=== PATIENT | male | born 1935 | race Caucasian/White ===

== ENCOUNTER 2017-06-24 21:46 | Inpatient (IN) | payer MEDICARE, BC ==
[2017-06-24] MEDS ORDERED: SODIUM CHLORIDE 0.9% 1,000 ML IV STA ×2 (21:56)
[2017-06-24] MEDS ORDERED: RX INFO: IV CONTRAST WAS GIVEN 1 EACH MISC MISCELLANE PRN (21:56)
[2017-06-24 22:08] LABS: Basophils % (A) 0 %; CHCM 31.9; Eosinophils # (A) 0.1 k/uL (0-0.7); Eosinophils % (A) 2 %; HCT 34.7 % (39.0-53.0); HDW 2.44; HGB 11.2 gm/dL (13.0-17.5); Luc # (Auto) 0.12; Luc % (Auto) 2; Lymphocytes # (A) 1.4 k/uL (1.0-4.8); Lymphocytes % (A) 27 %; MCH 29.5 pg (25.0-35.0); MCHC 32.2 g/dL (31.0-37.0); MCV 91.4 fL (80.0-100.0); Mean Platelet Volume 10.3; Monocytes # (A) 0.4 k/uL (0-1.0); Monocytes % (A) 8 %; Neutrophils # (A) 3.1 k/uL (1.3-7.7); Neutrophils % (A) 61 %; RBC 3.79 m/uL (4.30-5.90); RDW 14.3 % (11.5-15.5); WBC 5.1 k/uL (3.8-10.6); WBC (Perox) 5.58
[2017-06-24 22:18] LABS: ALT 30 U/L (21-72); AST 20 U/L (17-59); Alkaline Phosphatase 61 U/L (38-126); Anion Gap 12 mmol/L; Blood Urea Nitrogen 23 mg/dL (9-20); Calcium 9.5 mg/dL (8.4-10.2); Carbon Dioxide 26 mmol/L (22-30); Chloride 102 mmol/L (98-107); Glucose 145 mg/dL (74-99); INR 1.1 (<1.2); Non-African American GFR(MDRD) >60 (>60 ml/min/1.73 sqM); Partial Thromboplastin Time 22.4 sec (22.0-30.0); Potassium 4.8 mmol/L (3.5-5.1); Sodium 140 mmol/L (137-145); Total Bilirubin 0.4 mg/dL (0.2-1.3); Total Protein 7.2 g/dL (6.3-8.2)
--- NOTE | 2017-06-24 22:27 | CT ---
EXAMINATION TYPE: CT brain wo con for TPA DATE OF EXAM: 06/24/2017 COMPARISON: July 17, 2015 HISTORY: Change in mental status. CT DLP: 1039.50 mGycm Automated exposure control for dose reduction was used. FINDINGS: There is a large area of hypodensity involving the left temporal posterior parietal and part of the l eft occipital lobe related to old infarct. There is no mass effect nor midline shift. There is no sig n of intracranial hemorrhage. The calvarium is intact. 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 THE LEFT OCCIPITAL AND PARIETAL INFARCT IS UNCHANGED COMPARED TO 1 15. THE OLD LEFT TEMPORAL LOBE INFARCT IS NEW COMPARED TO OLD EXAM. NO EVIDENCE OF AN ACUTE INFARCT .
--- NOTE | 2017-06-24 22:39 | XR ---
EXAMINATION TYPE: XR chest 1V portable DATE OF EXAM: 06/24/2017 COMPARISON: 02/06/2013 HISTORY: Altered mental status TECHNIQUE: Single frontal view of the chest is obtained. FINDINGS: There is no heart failure nor confluent pneumonic infiltrate. There is left axillary pacem carmine with the lead tips in the right ventricle. There is no sign of pleural effusion. IMPRESSION: Mild pulmonary fibrotic changes. No heart failure. No significant change compared to old exam.
[2017-06-24 22:42] LABS: Creatine Kinase MB 3.5 ng/mL (0.0-2.4); Troponin I 0.039 ng/mL (0.000-0.034)
--- NOTE | 2017-06-24 22:45 | ED ---
General Adult HPI - General Chief complaint: Altered Mental Status Stated complaint: Neuro Defecit Time Seen by Provider: 06/24/17 21:47 Source: EMS, RN notes reviewed, old records reviewed Mode of arrival: EMS Limitations: altered mental status - History of Present Illness Initial comments: This is a 82-year-old male the ER for evaluation. Patient is a for evaluation regarding possible stroke. Patient is brought in by with history of stroke prevention regarding slurred speech and weakness. Patient himself at this point states the symptoms seem to be improved. states his symptoms seem to be improved. Patient denies any specific complaints, denies chest pain - Related Data Home Medications Medication Instructions Recorded Confirmed Lovastatin [Mevacor] 20 mg PO HS 07/17/15 06/25/17 metFORMIN HCL 1,000 mg PO BID 07/17/15 06/25/17 Aspirin 81 mg PO DAILY 06/24/17 06/25/17 Multivitamin [Men's Multi-Vitamin] 1 tab PO DAILY 06/25/17 06/25/17 Allergies Allergy/AdvReac Type Severity Reaction Status Date / Time Penicillins Allergy Unknown Verified 06/24/17 22:34 Review of Systems ROS Statement: Those systems with pertinent positive or pertinent negative responses have been documented in the HPI. ROS Other: All systems not noted in ROS Statement are negative. Past Medical History Past Medical History: Diabetes Mellitus, Hyperlipidemia Additional Past Medical History / Comment(s): low heart rate History of Any Multi-Drug Resistant Organisms: None Reported Past Surgical History: Pacemaker, Tonsillectomy Additional Past Surgical History / Comment(s): left leg surgery, right leg surgery, cataract surgery Past Psychological History: No Psychological Hx Reported Smoking Status: Never smoker Past Alcohol Use History: None Reported Past Drug Use History: None Reported - Past Family History Brother(s) Family Medical History: CVA/TIA Mother Family Medical History: Coronary Artery Disease (CAD), CVA/TIA Father Family Medical History: CVA/TIA General Exam - General Exam Comments Initial Comments: NIH of 1 Limitations: altered mental status General appearance: alert, in no apparent distress Head exam: Present: atraumatic, normocephalic, normal inspection Eye exam: Present: normal appearance, PERRL, EOMI. Absent: scleral icterus, conjunctival injection, periorbital swelling ENT exam: Present: normal exam, mucous membranes moist Neck exam: Present: normal inspection. Absent: tenderness, meningismus, lymphadenopathy Respiratory exam: Present: normal lung sounds bilaterally. Absent: respiratory distress, wheezes, rales, rhonchi, stridor Cardiovascular Exam: Present: regular rate, normal rhythm, normal heart sounds. Absent: systolic murmur, diastolic murmur, rubs, gallop, clicks GI/Abdominal exam: Present: soft, normal bowel sounds. Absent: distended, tenderness, guarding, rebound, rigid Extremities exam: Present: normal inspection, full ROM, normal capillary refill. Absent: tenderness, pedal edema, joint swelling, calf tenderness Back exam: Present: normal inspection Neurological exam: Present: alert, oriented X3, CN II-XII intact Psychiatric exam: Present: normal affect, normal mood Skin exam: Present: warm, dry, intact, normal color. Absent: rash Course Vital Signs 06/24/17 06/24/17 06/24/17 21:46 21:54 22:04 Temperature 98.3 F Pulse Rate 66 66 64 Respiratory 18 18 16 Rate Blood Pressure 134/64 133/59 139/64 O2 Sat by Pulse 100 100 97 Oximetry 06/24/17 06/24/17 06/24/17 22:14 22:24 22:34 Temperature Pulse Rate 66 69 62 Respiratory 16 16 16 Rate Blood Pressure 133/62 121/77 154/69 O2 Sat by Pulse 97 65 L 97 Oximetry 06/24/17 06/24/17 06/24/17 22:45 23:00 23:15 Temperature 97.5 F L 97.5 F L Pulse Rate 66 64 67 Respiratory 18 18 18 Rate Blood Pressure 150/70 149/69 147/68 O2 Sat by Pulse 97 97 98 Oximetry 06/24/17 06/24/17 23:32 23:45 Temperature 97.4 F L 97.5 F L Pulse Rate 68 66 Respiratory 18 18 Rate Blood Pressure 148/64 147/66 O2 Sat by Pulse 98 97 Oximetry - Reevaluation(s) Reevaluation #1: Secondary to low NIH, resolving symptoms Not a TPA candidate Reevaluation #2: Code stroke is a pain is paged on patient arrival EKG Findings - EKG Comments: EKG Findings:: EKG shows wide QRS rate of 60, QRS 134, QTc 486 Medical Decision Making - Medical Decision Making 82 male the ER for evaluation, patient's resented ER for evaluation regarding possible stroke, does have elevated troponin which we will trend. Patient was evaluated by stroke team here in the ER not a TPA candidate limit for neurological monitoring - Lab Data Result diagrams: 06/24/17 21:54 06/24/17 21:54 Lab Results 06/24/17 06/24/17 06/24/17 Range/Units 21:54 21:54 21:54 WBC 5.1 (3.8-10.6) k/uL RBC 3.79 L (4.30-5.90) m/uL Hgb 11.2 L (13.0-17.5) gm/dL Hct 34.7 L (39.0-53.0) % MCV 91.4 (80.0-100.0) fL MCH 29.5 (25.0-35.0) pg MCHC 32.2 (31.0-37.0) g/dL RDW 14.3 (11.5-15.5) % Plt Count 144 L (150-450) k/uL Neutrophils % 61 % Lymphocytes % 27 % Monocytes % 8 % Eosinophils % 2 % Basophils % 0 % Neutrophils # 3.1 (1.3-7.7) k/uL Lymphocytes # 1.4 (1.0-4.8) k/uL Monocytes # 0.4 (0-1.0) k/uL Eosinophils # 0.1 (0-0.7) k/uL Basophils # 0.0 (0-0.2) k/uL PT (9.0-12.0) sec INR (<1.2) APTT (22.0-30.0) sec Sodium 140 (137-145) mmol/L Potassium 4.8 (3.5-5.1) mmol/L Chloride 102 (98-107) mmol/L Carbon Dioxide 26 (22-30) mmol/L Anion Gap 12 mmol/L BUN 23 H (9-20) mg/dL Creatinine 0.70 (0.66-1.25) mg/dL Est GFR (MDRD) Af Amer >60 (>60 ml/min/1.73 sqM) Est GFR (MDRD) Non-Af >60 (>60 ml/min/1.73 sqM) Glucose 145 H (74-99) mg/dL Calcium 9.5 (8.4-10.2) mg/dL Total Bilirubin 0.4 (0.2-1.3) mg/dL AST 20 (17-59) U/L ALT 30 (21-72) U/L Alkaline Phosphatase 61 (38-126) U/L Total Creatine Kinase 157 (55-170) U/L CK-MB (CK-2) 3.5 H* (0.0-2.4) ng/mL CK-MB (CK-2) Rel Index 2.2 Troponin I 0.039 H* (0.000-0.034) ng/mL Total Protein 7.2 (6.3-8.2) g/dL Albumin 4.1 (3.5-5.0) g/dL 06/24/17 Range/Units 21:54 WBC (3.8-10.6) k/uL RBC (4.30-5.90) m/uL Hgb (13.0-17.5) gm/dL Hct (39.0-53.0) % MCV (80.0-100.0) fL MCH (25.0-35.0) pg MCHC (31.0-37.0) g/dL RDW (11.5-15.5) % Plt Count (150-450) k/uL Neutrophils % % Lymphocytes % % Monocytes % % Eosinophils % % Basophils % % Neutrophils # (1.3-7.7) k/uL Lymphocytes # (1.0-4.8) k/uL Monocytes # (0-1.0) k/uL Eosinophils # (0-0.7) k/uL Basophils # (0-0.2) k/uL PT 11.0 (9.0-12.0) sec INR 1.1 (<1.2) APTT 22.4 (22.0-30.0) sec Sodium (137-145) mmol/L Potassium (3.5-5.1) mmol/L Chloride (98-107) mmol/L Carbon Dioxide (22-30) mmol/L Anion Gap mmol/L BUN (9-20) mg/dL Creatinine (0.66-1.25) mg/dL Est GFR (MDRD) Af Amer (>60 ml/min/1.73 sqM) Est GFR (MDRD) Non-Af (>60 ml/min/1.73 sqM) Glucose (74-99) mg/dL Calcium (8.4-10.2) mg/dL Total Bilirubin (0.2-1.3) mg/dL AST (17-59) U/L ALT (21-72) U/L Alkaline Phosphatase (38-126) U/L Total Creatine Kinase (55-170) U/L CK-MB (CK-2) (0.0-2.4) ng/mL CK-MB (CK-2) Rel Index Troponin I (0.000-0.034) ng/mL Total Protein (6.3-8.2) g/dL Albumin (3.5-5.0) g/dL - Radiology Data Radiology results: report reviewed (CT CTA negative for stroke,), image reviewed Critical Care Time Critical Care Time: Yes Total Critical Care Time: 31 Disposition Clinical Impression: Altered mental status, CVA (cerebral vascular accident), ACS (acute coronary syndrome) Disposition: ADMITTED IP TO THIS [facility] Condition: Fair
--- NOTE | 2017-06-24 22:51 | CT ---
EXAMINATION TYPE: CT angio head neck DATE OF EXAM: 06/24/2017 HISTORY: Change in mental status. COMPARISON: NONE CT DLP: 249.10 mGycm. Automated Exposure Control for Dose Reduction was Utilized. TECHNIQUE: CTA scan of the neck is performed with IV Contrast, patient injected with 65 mL of Omnipa que 350, axial images are obtained, coronal and sagittal reformatted images are reviewed. Three-D rec onstructed images are created on an independent workstation and reviewed. FINDINGS: There is normal branching pattern of the great vessels on the aortic arch. There is flow in both vert ebral arteries which are symmetric in size. There is bilateral patency of the common internal and external carotid arteries. There is slight enla rgement of the left carotid artery bifurcation probably due to endarterectomy. There is some atherosc lerotic plaque at the carotid artery bifurcations with luminal narrowing of approximately 20%. There is a short segment of dissection with intimal flap seen in the distal left common carotid artery. Thi s measures 2 cm in length. There is normal contrast opacification of the venous sinuses. There is patency of the right posterior communicating artery. There is arterial flow in the anterior middle and posterior cerebral arteries bilaterally. There is e vidence of old large left hemispheric infarct involving the left temporal lobe left occipital and lef t parietal lobe. There is no evidence of aneurysm or neovascularity. There is no mass effect. There i s arterial flow in the vertebrobasilar artery system. 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 There is a 2 cm segme nt of distal left common carotid artery dissection. This is unchanged compared to old exam. No eviden ce of hemodynamically significant stenosis in the carotid and vertebral arteries. No intracranial angiographic abnormality identified in spite of the old left hemisphere infarct. This appears unchanged compared to old exam.
[2017-06-24] MEDS ORDERED: ASPIRIN 325 MG TAB PO STA (22:56)
[2017-06-25] MEDS: SODIUM CHLORIDE 0.9% 1,000 ML IV SCH ×3 (00:51→17:08)
[2017-06-25 04:29] LABS: Cholesterol 120 mg/dL (<200); HDL Cholesterol 61 mg/dL (40-60)
[2017-06-25 06:20] LABS: Glucose,Whole Blood 111 mg/dL (75-99)
[2017-06-25] MEDS: INSULIN ASPART 100 UNIT/ML 1 ML 10 ML VIAL SQ SCH ×4 (06:20→20:55)
--- NOTE | 2017-06-25 09:51 | US ---
EXAMINATION TYPE: US carotid duplex BILAT DATE OF EXAM: 06/25/2017 COMPARISON: NONE CLINICAL HISTORY: Stenosis. Stroke x 2 years ago. States had left CCA scraped out. Poor historian. EXAM MEASUREMENTS: RIGHT: Peak Systolic Velocity (PSV) cm/sec ----- Right CCA: 71.0 ----- Right ICA: 108.2 ----- Right ECA: 100.7 ICA/CCA ratio: 1.5 RIGHT: End Diastole cm/sec ----- Right CCA: 17.1 ----- Right ICA: 31.8 ----- Right ECA: 0.0 LEFT: Peak Systolic Velocity (PSV) cm/sec ----- Left CCA: 92.9 ----- Left ICA: 87.9 ----- Left ECA: 77.5 ICA/CCA ratio: 0.9 LEFT: End Diastole cm/sec ----- Left CCA: 15.9 ----- Left ICA: 27.0 ----- Left ECA: 0.0 VERTEBRALS (direction of flow): Right Vertebral: Antegrade Left Vertebral: Antegrade Rhythm: Normal Bilateral wall thickening. No significant stenosis or elevated velocities. Plaque seen in right CCA and bulb. Plaque seen in left distal CCA and bulb. Turbulent flow is within the left common carotid artery. Some hard atheromatous plaque is within the proximal right internal carotid artery. IMPRESSION: 1. Atheromatous plaquing within the common carotid arteries. 2. Patient is status post endarterectomy by history. Significant flow-limiting stenosis is not identi fied. 3. Plaquing with some narrowing but without significant flow-limiting stenosis right internal carotid artery Criteria for Assigning % of Stenosis / Diameter reduction (Estimation based on the indirect measurements of the internal carotid artery velocities (ICA PSV). 1. Normal (no stenosis)=ICA PSV < 125 cm/s: ratio < 2.0: ICA EDV<40 cm/s. 2. Less than 50% stenosis=ICA PSV < 125 cm/s: ratio < 2.0: ICA EDV<40 cm/s. 3. 50 to 69% stenosis=ICA PSV of 125 to 230 cm/s: ration 2.0 ? 4.0: ICA EDV 40-100 cm/s. 4. Greater than 70% stenosis to near occlusion= ICA PSV > 230 cm/s: ratio > 4.0: ICA EDV > 100 cm/s. 5. Near occlusion= ICA PSV velocities may be low or undetectable: variable ratio and ICA EDV. 6. Total occlusion=unable to detect flow.
[2017-06-25] MEDS: ASPIRIN 325 MG TAB PO SCH (10:58)
[2017-06-25 11:46] LABS: Glucose,Whole Blood 146 mg/dL (75-99)
--- NOTE | 2017-06-25 12:42 | ECHOF ---
Referral Reason:Thrombus MEASUREMENTS -------- HEIGHT: 177.8 cm WEIGHT: 75.7 kg BP: 137/72 RVIDd: 3.8 cm (< 3.3) IVSd: 1.4 cm (0.6 - 1.1) LVIDd: 4.9 cm (3.9 - 5.3) LVPWd: 1.3 cm (0.6 - 1.1) IVSs: 1.6 cm LVIDs: 4.0 cm LVPWs: 1.8 cm LA Diam: 4.4 cm (2.7 - 3.8) LAESV Index (A-L): 46.46 ml/m Ao Diam: 3.8 cm (2.0 - 3.7) AV Cusp: 2.2 cm (1.5 - 2.6) MV EXCURSION: 18.048 mm (> 18.000) MV EF SLOPE: 83 mm/s (70 - 150) EPSS: 1.2 cm MV E Nabeel: 1.13 m/s MV DecT: 232 ms MV A Nabeel: 0.37 m/s MV E/A Ratio: 3.04 RAP: 5.00 mmHg RVSP: 43.59 mmHg FINDINGS -------- This was a technically good study. The left ventricular size is normal. There is moderate concentric left ventricular hypertrophy. O verall left ventricular systolic function is mild-moderately impaired with, an EF 45%. Basal posteri or LV wall motion is hypokinetic. Basal inferior LV wall motion is hypokinetic. The right ventricle is mild to moderately enlarged. LA is severely dilated >40 ml/m2 The right atrium is normal in size. There is mild aortic valve sclerosis. The mitral valve leaflets are mildly thickened. Mild mitral annular calcification present. Mild m itral regurgitation is present. Mild tricuspid regurgitation present. There is mild pulmonary hypertension. The right ventricular systolic pressure, as measured by Doppler, is 43.59mmHg. Trace/mild (physiologic) pulmonic regurgitation. The aortic root is dilated measuring 3.8cm. The inferior vena cava is mildly dilated. There is no pericardial effusion. CONCLUSIONS -------- 1. This was a technically good study. 2. The left ventricular size is normal. 3. There is moderate concentric left ventricular hypertrophy. 4. Overall left ventricular systolic function is mild-moderately impaired with, an EF 45 %. 5. Basal posterior LV wall motion is hypokinetic. 6. Basal inferior LV wall motion is hypokinetic. 7. The right ventricle is mild to moderately enlarged. 8. LA is severely dilated >40 ml/m2 9. The right atrium is normal in size. 10. There is mild aortic valve sclerosis. 11. The mitral valve leaflets are mildly thickened. 12. Mild mitral annular calcification present. 13. Mild mitral regurgitation is present. 14. Mild tricuspid regurgitation present. 15. There is mild pulmonary hypertension. 16. The right ventricular systolic pressure, as measured by Doppler, is 43.59mmHg. 17. Trace/mild (physiologic) pulmonic regurgitation. 18. The aortic root is dilated measuring 3.8cm. 19. The inferior vena cava is mildly dilated. 20. There is no pericardial effusion. [employer] SUPERVISOR: Afshan Munoz RDCS
[2017-06-25 14:43] LABS: Glucose,Whole Blood 163 mg/dL (75-99)
[2017-06-25 17:08] LABS: Glucose,Whole Blood 119 mg/dL (75-99)
--- NOTE | 2017-06-25 20:06 | HP ---
HISTORY AND PHYSICAL DATE OF SERVICE: 06/25/2017. CHIEF COMPLAINT: Change in mental status and weakness. HISTORY OF PRESENT ILLNESS: This 82-year-old gentleman with a past medical history of multiple medical problems, including diabetes mellitus, hypertension, hyperlipidemia, history of CVA being followed by Dr. Macarena Kaur in the outpatient setting apparently went to the bathroom and stayed there. According to the , the patient is unable to walk and the patient is confused and patient came to [facility] and admitted for further evaluation and treatment. The repeat neurological evaluation did not show any significant progress from the previous reports; however, the patient has significantly increased weakness. Currently the patient is sitting by the bedside. Patient unable to move around at this time. There is no history of any fever, rigors. No headache, loss of consciousness, seizures. PAST MEDICAL HISTORY: History of diabetes, hyperlipidemia, history of pacemaker, tonsillectomy. MEDICATIONS PRIOR TO ADMISSION: Include: 1. Metformin 1000 mg p.o. b.i.d. 2. Multivitamins 1 p.o. daily. 3. Mevacor 20 mg daily. 4. Aspirin 81 mg daily. ALLERGIES: PENICILLIN. FAMILY HISTORY: History of CVA, TIA in the family. SOCIAL HISTORY: No history of smoking. No history of alcohol intake. REVIEW OF SYSTEMS: ENT: No diminished hearing, diminished vision. CARDIOVASCULAR: No angina. RESPIRATORY: No cough. GI: No nausea. : No dysuria. NERVOUS: As mentioned earlier. ALLERGY/IMMUNOLOGY: No asthma or hay fever. MUSCULOSKELETAL: As mentioned earlier. HEMATOLOGY/ONCOLOGY: No history of anemia. ENDOCRINE: No history of hypothyroidism. CONSTITUTIONAL: As mentioned earlier. DERMATOLOGY: Negative. RHEUMATOLOGY: Negative. PSYCHIATRY: As mentioned earlier. PHYSICAL EXAMINATION: Alert and oriented x2. Pulse 63, blood pressure 130/60, respirations 17, temp 97 degrees, pulse ox 98% on 2L. HEENT: Conjunctivae normal. Oral mucosa moist. NECK: No jugular venous distention. No carotid bruits. No lymph node enlargement. CARDIOVASCULAR: S1, S2 muffled. RESPIRATORY: Breath sounds diminished in the bases. A few scattered rhonchi. No crackles. ABDOMEN: Soft, nontender. No mass palpable. LEGS: No edema. No swelling. NERVOUS SYSTEM: Higher functions as mentioned earlier. Moves all 4 limbs. No focal motor or sensory deficits. LYMPHATIC: No lymph node palpable in neck, axillae or groins. LABS: WBC is 5.9, hemoglobin 11.2. Troponin 0.039, 0.047. ASSESSMENT: 1. Change in mental status and significant weakness and gait dysfunction, possible acute cerebrovascular accident and stroke. 2. History of previous strokes. 3. History of previous carotid stenosis. 4. Troponin 0.046, indeterminate. 5. Anemia, normocytic. 6. Diabetes mellitus type 2. 7. Hyperlipidemia. 8. History of tonsillectomy. 9. History of automatic implantable cardioverter-defibrillator. RECOMMENDATIONS AND DISCUSSION: In this 82-year-old gentleman who presented with multiple medical problems, will monitor the patient closely. Continue the current medical management and symptomatic treatment. Otherwise at this time, continue with the antiplatelets, resume the home medications, neurology consultation. Otherwise PT/OT evaluation for possible ECF rehab. The patient is confused at this time. We will continue to monitor. Discussed with the family, who understands and consents. This pt will need more than 2 nights hospital stay becasue of the multiple complex medical issues described. MMODL / IJN: [id number] / LEONELA
[2017-06-25 20:54] LABS: Glucose,Whole Blood 145 mg/dL (75-99)
[2017-06-25] MEDS: metFORMIN 500 MG TAB PO SCH (20:55)
[2017-06-25] MEDS: ATORVASTATIN 10 MG TAB PO SCH (20:55)
[2017-06-25] MEDS ORDERED: ATORVASTATIN 80 MG TAB PO SCH (21:00)
--- NOTE | 2017-06-25 22:15 | P.CNNES ---
History of Present Illness Consult date: 06/25/17 Reason for Consult: Patient being evaluated for acute stroke and confusion. History of Present Illness: this patient is a 82-year-old right-handed white male who was in his usual state of health yesterday. Apparently he was at home and developed symptoms of slurred speech and weakness. 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 This has left him with residual right-sided weakness. Apparently his noticed that his speech had changed suddenly yesterday and she was quite concerned that he may have had a recurrent stroke. Patient was brought into the emergency room at [facility] for evaluation. He was seen in the ER by Dr. Barr. He was sent for a computed tomography scan of the brain which revealed evidence of the old left hemispheric infarct. This involved the left parietal and occipital regions. There was no evidence of acute stroke or hemorrhage. Patient also underwent CTA angiogram of the head and neck which came back negative for any significant findings. The patient was evaluated in the ER by the code stroke team. Dr. Kong reviewed his studies and clinical findings and suggested he was not a candidate for TPA. Patient was admitted to hospital for further stroke evaluation.apparently the patient had findings suggesting chronic aphasia. This is felt to be progressing over the last few months according to the patient 's . The patient's NIH stroke scale in the ER was 2.0. He did not demonstrate any facial droop. He denies any headache at this time. We reviewed the results of the CT of the brain as well as CTA angiogram of the head and neck results with the patient in detail.the patient's speech continues to show slurring of words. As noted his CAT scan of the brain fails to reveal any acute findings. He is unable to go for MRI of the brain as he does have a pacemaker in the chest wall.the patient does have stroke risk factors which include hypercholesterolemia and diabetes mellitus. He is taking metformin on a regular basis. He does take one baby aspirin daily for stroke prevention. The patient is now admitted and neurology has been consulted for further evaluation and recommendations. Review of Systems Constitutional: Denies chills, Denies fever Eyes: denies blurred vision, denies pain Ears, nose, mouth and throat: Denies headache, Denies sore throat Cardiovascular: Denies chest pain, Denies shortness of breath Respiratory: Denies cough Gastrointestinal: Denies abdominal pain, Denies diarrhea, Denies nausea, Denies vomiting Musculoskeletal: Denies myalgias Integumentary: Denies pruritus, Denies rash Neurological: Reports change in mentation, Reports change in speech, Reports confusion, Reports hearing difficulties, Reports paresthesias, Denies numbness, Denies weakness Psychiatric: Denies anxiety, Denies depression Endocrine: Denies fatigue, Denies weight change Past Medical History Past Medical History: Diabetes Mellitus, Hyperlipidemia Additional Past Medical History / Comment(s): low heart rate History of Any Multi-Drug Resistant Organisms: None Reported Past Surgical History: Pacemaker, Tonsillectomy Additional Past Surgical History / Comment(s): left leg surgery, right leg surgery, cataract surgery Past Anesthesia/Blood Transfusion Reactions: No Reported Reaction Type of Cardiac Device: AICD Device Placement Date:: 2010 Past Psychological History: No Psychological Hx Reported Smoking Status: Never smoker Past Alcohol Use History: None Reported Past Drug Use History: None Reported - Past Family History Brother(s) Family Medical History: CVA/TIA Mother Family Medical History: Coronary Artery Disease (CAD), CVA/TIA Father Family Medical History: CVA/TIA Medications and Allergies Home Medications Medication Instructions Recorded Confirmed Type Lovastatin [Mevacor] 20 mg PO HS 07/17/15 06/25/17 History metFORMIN HCL 1,000 mg PO BID 07/17/15 06/25/17 History Aspirin 81 mg PO DAILY 06/24/17 06/25/17 History Multivitamin [Men's Multi-Vitamin] 1 tab PO DAILY 06/25/17 06/25/17 History Allergies Allergy/AdvReac Type Severity Reaction Status Date / Time Penicillins Allergy Unknown Verified 06/24/17 22:34 Physical Examination - Vital Signs Vital Signs: Vital Signs Temp Pulse Pulse Resp BP BP Pulse Ox 06/25/17 16:00 97.1 F L 60 18 145/63 100 06/25/17 08:00 97 F L 63 17 132/60 98 06/25/17 04:00 97.2 F L 62 16 137/72 100 06/25/17 00:34 97.5 F L 68 16 142/66 100 06/24/17 23:45 97.5 F L 66 18 147/66 97 06/24/17 23:32 97.4 F L 68 18 148/64 98 06/24/17 23:15 67 18 147/68 98 06/24/17 23:00 97.5 F L 64 18 149/69 97 06/24/17 22:45 97.5 F L 66 18 150/70 97 06/24/17 22:34 62 16 154/69 97 06/24/17 22:24 69 16 121/77 65 L 06/24/17 22:14 66 16 133/62 97 06/24/17 22:04 64 16 139/64 97 06/24/17 21:54 66 18 133/59 100 06/24/17 21:46 98.3 F 66 18 134/64 100 Intake and Output 06/25/17 06/25/17 06/25/17 06:59 14:59 22:59 Intake Total 800 940 240 Output Total 100 200 600 Balance 700 740 -360 Intake: IV 800 700 Sodium Chloride 0.9% 1, 800 700 000 ml @ 100 mls/hr IV . Q10H STA Rx#:[id number] Oral 240 240 Output: Urine 100 200 600 Other: Voiding Method Urinal # Voids 1 1 1 Weight 76 kg - Constitutional General appearance: average body habitus, cooperative - EENT EENT: PERRL, mucous membranes moist - Respiratory Respiratory: lungs clear, normal breath sounds - Cardiovascular Cardiovascular: regular rate, normal S1, normal S2 Extremities: no peripheral edema bilaterally - Gastrointestinal Gastrointestinal: normoactive bowel sounds - Integumentary Integumentary: normal - Neurologic Cranial nerve examination: PERRL, EOMI, VFF, V1/V2/V3 grossly intact, tongue midline, intact gag reflex, intact corneal reflex, facial droop (there is right- sided facial asymmetry noted.), normal palatal elevation Speech examination: intact Sensorimotor examination: intact Motor examination - right side: 4/5: biceps, triceps, wrist flexion, wrist extension, housekeeping coordinator, hip flexors, knee extensors, dorsiflexion, toe extension (EHL) , plantarflexion Motor examination - left side: 4/5: biceps, triceps, wrist flexion, wrist extension, housekeeping coordinator, hip flexors, knee extensors, dorsiflexion, toe extension (EHL) , plantarflexion Detailed sensory examination: intact Reflex and gait examination: intact Reflexes: 1+: ankle, bicep, knee, tricep Cerebellar examination: dysmetria - Musculoskeletal Musculoskeletal: no pain - Psychiatric Psychiatric: mood/affect appropriate, cooperative Results - Laboratory Findings CBC and BMP: 06/24/17 21:54 06/24/17 21:54 Abnormal Lab Findings: Abnormal Labs 06/24/17 06/24/17 06/24/17 21:43 21:54 21:54 RBC 3.79 L Hgb 11.2 L Hct 34.7 L Plt Count 144 L BUN Glucose POC Glucose (mg/dL) 163 H CK-MB (CK-2) 3.5 H* Troponin I 0.039 H* HDL Cholesterol 06/24/17 06/25/17 06/25/17 21:54 03:54 03:54 RBC Hgb Hct Plt Count BUN 23 H Glucose 145 H POC Glucose (mg/dL) CK-MB (CK-2) Troponin I 0.043 H* HDL Cholesterol 61 H 06/25/17 06/25/17 06/25/17 06:16 11:22 11:39 RBC Hgb Hct Plt Count BUN Glucose POC Glucose (mg/dL) 111 H 146 H CK-MB (CK-2) Troponin I 0.047 H* HDL Cholesterol 06/25/17 17:04 RBC Hgb Hct Plt Count BUN Glucose POC Glucose (mg/dL) 119 H CK-MB (CK-2) Troponin I HDL Cholesterol Assessment and Plan (1) Acute encephalopathy Current Visit: Yes Status: Acute SNOMED Code(s): 6356197 (2) History of stroke Current Visit: Yes Status: Acute SNOMED Code(s): 089486442 (3) ACS (acute coronary syndrome) Current Visit: Yes Status: Acute SNOMED Code(s): 055067801 Plan: this patient is a 82-year-old male who was admitted to the hospital with symptoms of slurred speech and questionable recurrent stroke. Patient was brought into the emergency room where he was evaluated by Dr. Barr. The patient was sent for computed tomography scan of the brain which failed to reveal any evidence of acute stroke or hemorrhage.we have recommended the patient undergo a complete stroke evaluation. He should continue on 1 aspirin daily for secondary stroke prevention. We will continue close neurological follow-up with this patient during this admission. Time with Patient: Greater than 30
[2017-06-26] MEDS: SODIUM CHLORIDE 0.9% 1,000 ML IV SCH ×2 (05:58→17:46)
[2017-06-26 06:17] LABS: Basophils % (A) 0 %; CH 29.3; CHCM 31.1; Eosinophils # (A) 0.1 k/uL (0-0.7); Eosinophils % (A) 1 %; HCT 31.9 % (39.0-53.0); HDW 2.25; HGB 9.8 gm/dL (13.0-17.5); Hypochromasia Slight; Luc # (Auto) 0.06; Luc % (Auto) 1; Lymphocytes # (A) 1.2 k/uL (1.0-4.8); Lymphocytes % (A) 22 %; MCH 29.3 pg (25.0-35.0); MCHC 30.8 g/dL (31.0-37.0); MCV 94.9 fL (80.0-100.0); Mean Platelet Volume 10.8; Monocytes # (A) 0.4 k/uL (0-1.0); Monocytes % (A) 8 %; Neutrophils # (A) 3.8 k/uL (1.3-7.7); Neutrophils % (A) 68 %; RBC 3.36 m/uL (4.30-5.90); WBC 5.6 k/uL (3.8-10.6); WBC (Perox) 5.66
[2017-06-26 06:19] LABS: Glucose,Whole Blood 111 mg/dL (75-99)
[2017-06-26] MEDS: INSULIN ASPART 100 UNIT/ML 1 ML 10 ML VIAL SQ SCH ×4 (06:20→20:51)
[2017-06-26 06:28] LABS: Anion Gap 6 mmol/L; Blood Urea Nitrogen 17 mg/dL (9-20); Calcium 8.6 mg/dL (8.4-10.2); Carbon Dioxide 28 mmol/L (22-30); Chloride 106 mmol/L (98-107); Glucose 110 mg/dL (74-99); Non-African American GFR(MDRD) >60 (>60 ml/min/1.73 sqM); Sodium 140 mmol/L (137-145)
[2017-06-26] MEDS: MULTIVITAMINS, THERA 1 EACH TAB PO SCH (07:31)
[2017-06-26] MEDS: ASPIRIN 325 MG TAB PO SCH (07:31)
[2017-06-26] MEDS: metFORMIN 500 MG TAB PO SCH ×2 (07:31→20:51)
[2017-06-26 12:25] LABS: Glucose,Whole Blood 103 mg/dL (75-99)
[2017-06-26 17:38] LABS: Glucose,Whole Blood 122 mg/dL (75-99)
[2017-06-26 20:47] LABS: Glucose,Whole Blood 140 mg/dL (75-99)
[2017-06-26] MEDS: ATORVASTATIN 10 MG TAB PO SCH (20:51)
[2017-06-26] MEDS: HEPARIN SODIUM,PORCINE 5,000 UNIT/ML 1 ML VIAL SQ SCH (20:52)
--- NOTE | 2017-06-26 21:47 | PN ---
PROGRESS NOTE DATE OF SERVICE: 06/26/2017 This 82-year-old gentleman was admitted with change in mental status and significant weakness. stroke as well. Dr. Hui, neurologist is following the patient closely. The patient is still confused. PAST MEDICAL HISTORY: Reviewed. PHYSICAL EXAM: Patient is alert, oriented, times three. Pulse 61, blood pressure 150/77, respiration 18, temperature 97 degrees, pulse ox 97% on room air. HEENT: Conjunctivae normal. NECK: No jugular venous distention. CARDIOVASCULAR: S1, S2 muffled. Respiration: Breath sounds diminished in the bases. A few scattered rhonchi. No crackles. ABDOMEN: Soft. Legs are no edema. No swelling. Central nervous system: Diffusely weak. LAB STUDIES: WBC 5.7, hemoglobin is 9.8. Accu-Cheks are noted. ASSESSMENT: 1. Acute cerebrovascular accident causing change in mental status and significant weakness and gait dysfunction. 2. History of previous multiple strokes. 3. History of previous carotid stenosis. 4. Troponin 0.04 indeterminate. 5. Anemia normocytic. 6. Diabetes type 2. 7. Hyperlipidemia. 8. History of tonsillectomy. 9. History AICD. RECOMMENDATIONS AND DISCUSSION: In this 82-year-old gentleman who presented with multiple complex medical issues. We will monitor the patient closely. Continue the current medications, continue management and symptomatic treatment, continue with antiplatelet agents. Continue with Lipitor. Monitor blood sugars closely. DVT prophylaxis. Otherwise I would also recommend closely monitor and further recommendations to follow. MMODL / IJN: [id number] / MTDErika
[2017-06-27 06:13] LABS: Basophils % (A) 0 %; CH 29.9; CHCM 31.2; Eosinophils # (A) 0.1 k/uL (0-0.7); Eosinophils % (A) 2 %; HCT 32.5 % (39.0-53.0); HDW 2.25; HGB 9.9 gm/dL (13.0-17.5); Luc # (Auto) 0.06; Luc % (Auto) 1; Lymphocytes # (A) 1.4 k/uL (1.0-4.8); Lymphocytes % (A) 30 %; MCH 29.2 pg (25.0-35.0); MCHC 30.3 g/dL (31.0-37.0); MCV 96.5 fL (80.0-100.0); Monocytes # (A) 0.4 k/uL (0-1.0); Monocytes % (A) 8 %; Neutrophils # (A) 2.8 k/uL (1.3-7.7); Neutrophils % (A) 59 %; RBC 3.37 m/uL (4.30-5.90); RDW 14.2 % (11.5-15.5); WBC 4.7 k/uL (3.8-10.6); WBC (Perox) 4.84
[2017-06-27 06:18] LABS: Glucose,Whole Blood 99 mg/dL (75-99)
[2017-06-27 06:22] LABS: Anion Gap 6 mmol/L; Blood Urea Nitrogen 17 mg/dL (9-20); Calcium 8.8 mg/dL (8.4-10.2); Carbon Dioxide 28 mmol/L (22-30); Chloride 107 mmol/L (98-107); Glucose 99 mg/dL (74-99); Non-African American GFR(MDRD) >60 (>60 ml/min/1.73 sqM); Potassium 4.2 mmol/L (3.5-5.1); Sodium 141 mmol/L (137-145)
[2017-06-27] MEDS: INSULIN ASPART 100 UNIT/ML 1 ML 10 ML VIAL SQ SCH ×4 (06:24→21:26)
[2017-06-27] MEDS: PANTOPRAZOLE 40 MG TABLET PO SCH (06:57)
[2017-06-27] MEDS: metFORMIN 500 MG TAB PO SCH ×2 (07:57→21:27)
[2017-06-27] MEDS: MULTIVITAMINS, THERA 1 EACH TAB PO SCH (07:58)
[2017-06-27] MEDS: ASPIRIN 325 MG TAB PO SCH (07:58)
[2017-06-27] MEDS: HEPARIN SODIUM,PORCINE 5,000 UNIT/ML 1 ML VIAL SQ SCH ×2 (07:58→21:28)
--- NOTE | 2017-06-27 11:09 | EEG ---
ELECTROENCEPHALOGRAM REPORT DATE OF EEG: Is 06/26/2017. REFERRING PHYSICIAN: Dr. Campoverde. INTERPRETING PHYSICIAN: Dr. Markell Hui INDICATION FOR EXAMINATION: This patient is an 82-year-old male being evaluated for TIA symptoms. The patient presented with slurred speech and weakness. AGE: [age]. EEG FINDINGS: A routine 21 channel awake digital EEG recording was accomplished utilizing the 10-20 international system with bipolar and referential montages. The background activity in the most alert resting state consists of a low to medium amplitude, fairly well developed and well sustained 6 Hertz activity over the posterior head regions. This posterior rhythm attenuates to eye opening. There is a small amount of low amplitude 18-20 Hz beta activity seen maximally over the anterior head regions. Muscle and movement artifact was observed on a few occasions during the tracing. Hyperventilation was not performed. Photic stimulation at flash frequencies of 2-30 Hz produced a minimal occipital driving response. Towards the mid and lateral portion of the tracing the patient does drift into spontaneous drowsiness. No epileptiform discharges were seen. IMPRESSION: This EEG is moderately abnormal due to slowing of the EEG background. The EEG failed to reveal any focal, lateralized, or epileptiform abnormalities. Clinical correlation is recommended. MMODL / IJN: [id number] /
[2017-06-27 11:53] LABS: Glucose,Whole Blood 149 mg/dL (75-99)
--- NOTE | 2017-06-27 15:37 | P.PN ---
Subjective Progress Note Date: 06/27/17 Patient is 82 year olf male being evaluated for possible TIA and encephalopathy. The patient presented with symptoms of increased confusion at home as well as difficulty with walking and ambulation. Patient has a history of having suffered a large left hemispheric stroke in 2014. He has been left with some residual right-sided weakness. Due to his changes in mentation and weakness there was concern for recurrent stroke. He was brought into the emergency room where he was evaluated by Dr. Barr. He underwent a computed tomography scan of the brain as well as a CT angiogram both of which came back negative for any significant abnormalities or new findings. Patient was admitted to the hospital for further evaluation. Patient apparently has evidence of chronic aphasia. It was felt that his aphasia was at baseline level of function. He was evaluated in the ER and is cold stroke was initiated. The neuro interventional was felt he was not a candidate for TPA. He was admitted to hospital for further management. Patient apparently has shown some signs of improvement yesterday and today. He seems to be near baseline level of function. He is currently on aspirin therapy for secondary stroke prevention. The patient does have a history of multiple complex medical problems including diabetes mellitus, hyperlipidemia, hypertension, and previous stroke. Patient may be considered for possible subacute rehab placement for further management if needed. Patient states he is still having difficulty walking due to weakness in his legs. We have recommended that he be evaluated for inpatient rehab placement with Dr. Painter. Would continue with PT/ OT evaluation for this patient and will await their further recommendations for inpatient rehab. His overall prognosis at this time remains guarded. We will continue close neurological follow-up for this patient during this admission. Objective - Vital Signs Vital signs: Vital Signs Temp 96.4 F L 06/27/17 08:00 Pulse 61 06/27/17 08:00 Resp 18 06/27/17 08:00 BP 121/60 06/27/17 08:00 Pulse Ox 99 06/27/17 08:00 Intake & Output 06/26/17 06/27/17 06/27/17 18:59 06:59 18:59 Intake Total 160 160 Output Total 300 Balance -140 160 Weight 76 kg Intake: IV 160 160 0.9% NS 20 mL/hr 160 160 Output: Urine 300 Other: # Voids 1 - Exam Physical Examination: PHYSICAL EXAMINATION: Patient is resting comfortably in bed. VITAL SIGNS: Blood pressure is [121/60]. Heart rate is [61]. Respiration is [18] . Temperature is [96.4]. HEENT: Head is atraumatic, neck is supple, there were no carotid bruits. CHEST: Lungs are clear to auscultation and percussion. CARDIAC: S1, S2 normal rate and rhythm. There is no murmur. ABDOMEN: Soft and nontender. Bowel sounds are present. EXTREMITIES: There is no pedal edema. Peripheral pulses are present. Neurological examination: Patient's neurological examination is unchanged from yesterday. Patient's speech remains stable and relatively unchanged from the time of admission. He does have some degree of chronic aphasia. Patient continues have evidence of bilateral leg weakness. - Labs CBC & Chem 7: 06/27/17 05:37 06/27/17 05:37 Labs: Abnormal Lab Results - Last 24 Hours (Table) 06/26/17 06/26/17 06/26/17 Range/Units 05:17 11:53 16:59 RBC (4.30-5.90) m/uL Hgb (13.0-17.5) gm/dL Hct (39.0-53.0) % MCHC (31.0-37.0) g/dL POC Glucose (mg/dL) 103 H 122 H (75-99) mg/dL Hemoglobin A1c 6.3 H (4.0-6.0) % 06/26/17 06/27/17 Range/Units 20:46 05:37 RBC 3.37 L (4.30-5.90) m/uL Hgb 9.9 L (13.0-17.5) gm/dL Hct 32.5 L (39.0-53.0) % MCHC 30.3 L (31.0-37.0) g/dL POC Glucose (mg/dL) 140 H (75-99) mg/dL Hemoglobin A1c (4.0-6.0) % Assessment and Plan (1) Acute encephalopathy Current Visit: Yes Status: Acute SNOMED Code(s): 3937932 (2) History of stroke Current Visit: Yes Status: Acute SNOMED Code(s): 558731232 (3) ACS (acute coronary syndrome) Current Visit: Yes Status: Acute SNOMED Code(s): 219462928 Plan: This patient is a 82-year-old gentleman who was admitted to hospital with multiple complex medical problems including history of diabetes mellitus and hyperlipidemia. He has a history of suffering a major stroke 2 years ago. He was left with some residual deficits. He does have chronic aphasia which appears to be stable and unchanged from previous. He was admitted to hospital for further evaluation of possible TIA versus stroke. His workup thus far has come back negative. He does continue to have bilateral leg weakness and may be a candidate for inpatient rehab placement. We will await further recommendations from PT OT in regards to rehab placement for the patient. Patient is to continue on aspirin for secondary stroke prevention. He is unable to go for MRI of the brain due to his history of pacemaker placement. His computed tomography scan of the brain failed to reveal any acute stroke or hemorrhage. We will continue close neurological follow-up with this patient during this admission. His overall prognosis remains guarded.
[2017-06-27 16:54] LABS: Glucose,Whole Blood 97 mg/dL (75-99)
--- NOTE | 2017-06-27 17:14 | PN ---
PROGRESS NOTE DATE OF SERVICE: 06/27/2017 This 82-year-old gentleman was admitted with acute CVI. Also, had change in mental status. The patient is being closely monitored. PT, OT are evaluating the patient. Neurology evaluation. Also possible ECF rehab. No chest pain. No palpitations. No fever. PHYSICAL EXAM: Alert and oriented x2. Dysarthric. Pulse is 61, blood pressure 121/60, respiration 18, temperature 98.4, pulse ox 99% on room air. HEENT: Conjunctivae normal. Oral mucosa moist. Neck is no jugular venous distention. No lymph node enlargement. CARDIOVASCULAR: S1, S2. No S3, no S4. RESPIRATORY: Breath sounds diminished in the bases. No rhonchi, no crackles. ABDOMEN: Soft, nontender. LEGS: No edema. NERVOUS SYSTEM: Diffusely weak. LABS: At this time shows WBC 4.2, hemoglobin 9.9. Other labs are noted. ASSESSMENT: 1. Acute cerebrovascular accident causing change in mental status and significant weakness and gait dysfunction. 2. History of previous multiple strokes. 3. History of previous carotid stenosis. 4. Troponin 0.05 indeterminate. 5. Anemia normocytic. 6. Diabetes mellitus type 2. 7. Hyperlipidemia. 8. History of tonsillectomy. 9. History AICD. RECOMMENDATIONS AND DISCUSSION: I recommend to continue the current medications, monitoring and symptomatic treatment. Otherwise at this time I recommend to continue with PT, OT evaluation and antiplatelet agents. UA with micro. Possible ECF rehab. Guarded prognosis. Further recommendations to follow. MMODL / IJN: [id number] /
[2017-06-27 18:26] LABS: Appearance,Urine Clear (Clear); Bilirubin,Urine Negative (Negative); Glucose,Urine (UA) Negative (Negative); Ketones,Urine Negative (Negative); Leukocyte Esterase,Urine Negative (Negative); Nitrite,Urine Negative (Negative); Protein,Urine Negative (Negative); Specific Gravity,Urine 1.009 (1.001-1.035); UA Billing (MACRO vs. MICRO) CHEM; Urobilinogen,Urine <2.0 mg/dL (<2.0)
[2017-06-27 21:24] LABS: Glucose,Whole Blood 130 mg/dL (75-99)
[2017-06-27] MEDS: ATORVASTATIN 10 MG TAB PO SCH (21:27)
[2017-06-28 06:04] LABS: Glucose,Whole Blood 100 mg/dL (75-99)
[2017-06-28] MEDS: INSULIN ASPART 100 UNIT/ML 1 ML 10 ML VIAL SQ SCH ×3 (06:08→17:21)
[2017-06-28] MEDS: PANTOPRAZOLE 40 MG TABLET PO SCH (06:34)
[2017-06-28 06:49] LABS: Basophils % (A) 0 %; CH 29.2; CHCM 30.8; Eosinophils # (A) 0.1 k/uL (0-0.7); Eosinophils % (A) 1 %; HCT 34.8 % (39.0-53.0); HDW 2.31; HGB 10.9 gm/dL (13.0-17.5); Hypochromasia Slight; Luc # (Auto) 0.08; Luc % (Auto) 1; Lymphocytes # (A) 1.3 k/uL (1.0-4.8); Lymphocytes % (A) 25 %; MCH 29.8 pg (25.0-35.0); MCHC 31.3 g/dL (31.0-37.0); MCV 95.2 fL (80.0-100.0); Mean Platelet Volume 10.7; Monocytes # (A) 0.5 k/uL (0-1.0); Monocytes % (A) 9 %; Neutrophils # (A) 3.5 k/uL (1.3-7.7); Neutrophils % (A) 64 %; RBC 3.65 m/uL (4.30-5.90); RDW 14.2 % (11.5-15.5); WBC 5.5 k/uL (3.8-10.6); WBC (Perox) 5.63
[2017-06-28 06:57] LABS: Anion Gap 6 mmol/L; Blood Urea Nitrogen 20 mg/dL (9-20); Calcium 9.1 mg/dL (8.4-10.2); Carbon Dioxide 27 mmol/L (22-30); Chloride 105 mmol/L (98-107); Glucose 91 mg/dL (74-99); Non-African American GFR(MDRD) >60 (>60 ml/min/1.73 sqM); Potassium 4.3 mmol/L (3.5-5.1); Sodium 138 mmol/L (137-145)
[2017-06-28] MEDS: ASPIRIN 325 MG TAB PO SCH (08:26)
[2017-06-28] MEDS: metFORMIN 500 MG TAB PO SCH (08:26)
[2017-06-28] MEDS: MULTIVITAMINS, THERA 1 EACH TAB PO SCH (08:26)
[2017-06-28] MEDS: HEPARIN SODIUM,PORCINE 5,000 UNIT/ML 1 ML VIAL SQ SCH (08:26)
[2017-06-28 09:01] VITALS: RESP 18
[2017-06-28 12:04] LABS: Glucose,Whole Blood 149 mg/dL (75-99)
--- NOTE | 2017-06-28 14:49 | P.DS ---
Providers Date of admission: 06/24/17 22:57 Attending physician: Melva Campoverde Consults: 06/25/17 00:42 Consult Physician Routine Consulting Provider: Markell Hui Consult Reason/Comments: CVA Do you want consulting provider notified?: Yes Primary care physician: Macarena Kaur [facility] Course: This 82-year-old gentleman with a past medical history multiple medical problems was Admitted with a Change in Mental Status and Weakness. Acute CVI Was Considered. Patient Was Treated Symptomatically. The Weakness Improved. Gait Dysfunction Was Also Monitored by Physical Therapy. ECF Evaluation Has Been Recommended by Physical Therapy. Patient Be Discharged in a Stable Condition with Guarded Prognosis. Total Time Taken Is 35 Minutes. On Exam Vitals Are Stable. Cardio S1 and S2 Normal. Respirator System Few Rhonchi. Abdomen Soft Nontender. Nervous System Diffusely Weak and Gait Ataxia Also Present. Final Diagnoses 1. Acute CVI Causing Change in Mental Status and Significant Weakness and Gait Dysfunction. 2. History of Previous Multiple Strokes. 3. History of Previous Carotid Stenosis. 4. Troponin 0.05 Indeterminate. 5. Anemia Normocytic Anemia of Chronic Disease. 6. Diabetes Was Type II. 7. Hyperlipidemia. 8. History of Tonsillectomy. 9. History of AICD. Patient Condition at Discharge: Fair Plan - Discharge Summary Discharge Rx Participant: No New Discharge Prescriptions: New Aspirin 325 mg PO DAILY tab Atorvastatin [Lipitor] 10 mg PO HS tab INSULIN LISPRO (HumaLOG) [humaLOG] 0 unit SQ ACHS #1 vial Pantoprazole [Protonix] 40 mg PO AC-BRKFST tablet. Continue metFORMIN HCL 1,000 mg PO BID Multivitamin [Men's Multi-Vitamin] 1 tab PO DAILY Discontinued Lovastatin [Mevacor] 20 mg PO HS Aspirin 81 mg PO DAILY Discharge Medication List metFORMIN HCL 1,000 mg PO BID 07/17/15 [History] Multivitamin [Men's Multi-Vitamin] 1 tab PO DAILY 06/25/17 [History] Aspirin 325 mg PO DAILY tab 06/28/17 [Rx] Atorvastatin [Lipitor] 10 mg PO HS tab 06/28/17 [Rx] INSULIN LISPRO (HumaLOG) [humaLOG] 0 unit SQ ACHS #1 vial 06/28/17 [Rx] Pantoprazole [Protonix] 40 mg PO AC-BRKFST tablet. 06/28/17 [Rx] Follow up Appointment(s)/Referral(s): Markell Hui MD [STAFF PHYSICIAN] - 2 Weeks Nadir García MD [STAFF PHYSICIAN] - 3 Days (while at ecf ) Macarena Kaur MD [Primary Care Provider] - 1 Week (after dc from ECF) Activity/Diet/Wound Care/Special Instructions: Diet: cardiac Activity: as tolerated cbc,bmp in 3 days Discharge Disposition: TRANSFER TO SNF/ECF
[2017-06-28 16:52] LABS: Glucose,Whole Blood 102 mg/dL (75-99)
[2017-06-28 17:42] VITALS: BP 112/56; PULSE 62; TEMP 97
--- NOTE | 2017-06-28 19:39 | P.PN ---
Subjective Progress Note Date: 06/28/17 Patient is 82 year olf male being evaluated for possible TIA and encephalopathy. The patient presented with symptoms of increased confusion at home as well as difficulty with walking and ambulation. Patient has a history of having suffered a large left hemispheric stroke in 2014. He has been left with some residual right-sided weakness. Due to his changes in mentation and weakness there was concern for recurrent stroke. He was brought into the emergency room where he was evaluated by Dr. Barr. He underwent a computed tomography scan of the brain as well as a CT angiogram both of which came back negative for any significant abnormalities or new findings. Patient was admitted to the hospital for further evaluation. Patient apparently has evidence of chronic aphasia. It was felt that his aphasia was at baseline level of function. He was evaluated in the ER and is cold stroke was initiated. The neuro interventional was felt he was not a candidate for TPA. He was admitted to hospital for further management. Patient apparently has shown some signs of improvement yesterday and today. He seems to be near baseline level of function. He is currently on aspirin therapy for secondary stroke prevention. The patient does have a history of multiple complex medical problems including diabetes mellitus, hyperlipidemia, hypertension, and previous stroke. Patient may be considered for possible subacute rehab placement for further management if needed. Patient states he is still having difficulty walking due to weakness in his legs. We have recommended that he be evaluated for inpatient rehab placement with Dr. Painter. Would continue with PT/ OT evaluation for this patient and will await their further recommendations for inpatient rehab. His overall prognosis at this time remains guarded. The patient is being considered for possible discharge later today. We will continue close neurological follow-up for this patient during this admission. Objective - Vital Signs Vital signs: Vital Signs Temp 97 F L 06/28/17 16:00 Pulse 62 06/28/17 16:00 Resp 18 06/28/17 16:00 BP 112/56 06/28/17 16:00 Pulse Ox 98 06/28/17 16:00 Intake & Output 06/28/17 06/28/17 06/29/17 06:59 18:59 06:59 Intake Total 180 360 Output Total 100 650 Balance 80 -290 Weight 78.2 kg Intake: IV 180 0.9% NS 20 mL/hr 180 Oral 360 Output: Urine 100 650 Other: Voiding Method Urinal # Bowel Movements 0 - Exam Physical Examination: PHYSICAL EXAMINATION: Patient is resting comfortably in bed. VITAL SIGNS: Blood pressure is [112/56]. Heart rate is [62]. Respiration is [18] . Temperature is [97.0]. HEENT: Head is atraumatic, neck is supple, there were no carotid bruits. CHEST: Lungs are clear to auscultation and percussion. CARDIAC: S1, S2 normal rate and rhythm. There is no murmur. ABDOMEN: Soft and nontender. Bowel sounds are present. EXTREMITIES: There is no pedal edema. Peripheral pulses are present. Neurological examination: Patient's neurological examination is unchanged from yesterday. Patient's speech remains stable and relatively unchanged from the time of admission. He does have some degree of chronic aphasia. Patient continues have evidence of bilateral leg weakness. - Labs CBC & Chem 7: 06/28/17 05:53 06/28/17 05:53 Labs: Abnormal Lab Results - Last 24 Hours (Table) 06/27/17 06/28/17 06/28/17 Range/Units 21:21 05:53 06:00 RBC 3.65 L (4.30-5.90) m/uL Hgb 10.9 L (13.0-17.5) gm/dL Hct 34.8 L (39.0-53.0) % POC Glucose (mg/dL) 130 H 100 H (75-99) mg/dL 06/28/17 06/28/17 Range/Units 11:48 16:43 RBC (4.30-5.90) m/uL Hgb (13.0-17.5) gm/dL Hct (39.0-53.0) % POC Glucose (mg/dL) 149 H 102 H (75-99) mg/dL Assessment and Plan (1) Acute encephalopathy Current Visit: Yes Status: Acute SNOMED Code(s): 8979624 (2) History of stroke Current Visit: Yes Status: Acute SNOMED Code(s): 017637188 (3) ACS (acute coronary syndrome) Current Visit: Yes Status: Acute SNOMED Code(s): 954852263 Plan: This patient is a 82-year-old gentleman who was admitted to hospital with multiple complex medical problems including history of diabetes mellitus and hyperlipidemia. He has a history of suffering a major stroke 2 years ago. He was left with some residual deficits. He does have chronic aphasia which appears to be stable and unchanged from previous. He was admitted to hospital for further evaluation of possible TIA versus stroke. His workup thus far has come back negative. He does continue to have bilateral leg weakness and may be a candidate for inpatient rehab placement. We will await further recommendations from PT OT in regards to rehab placement for the patient. Patient is to continue on aspirin for secondary stroke prevention. He is unable to go for MRI of the brain due to his history of pacemaker placement. His computed tomography scan of the brain failed to reveal any acute stroke or hemorrhage. His neurological examination remains very stable. He continues to have some evidence of aphasia which is chronic in nature. He is being considered for possible discharge home versus subacute rehab placement. We will continue close neurological follow-up with this patient during this admission. His overall prognosis remains guarded.
== END 2017-06-28 20:03 | DRG 65 ==
LOC: EC 21:46 → SUPCPDRO 21:46 → 6SEL 22:57
PROVIDERS: ADMIT Hospitalist; ATTEND Hospitalist
DX: I63.9 Cerebral infarction, unspecified (principal); I24.9 Acute ischemic heart disease, unspecified; E11.9 Type 2 diabetes mellitus without complications; R47.01 Aphasia; D63.8 Anemia in other chronic diseases classified elsewhere; I10 Essential (primary) hypertension; E78.5 Hyperlipidemia, unspecified; R53.1 Weakness; R27.0 Ataxia, unspecified; Z79.82 Long term (current) use of aspirin; Z79.84 Long term (current) use of oral hypoglycemic drugs; Z79.899 Other long term (current) drug therapy; Z88.0 Allergy status to penicillin; Z95.810 Presence of automatic (implantable) cardiac defibrillator; Z86.73 Personal history of transient ischemic attack (TIA), and cerebral infarction without residual deficits; Z82.49 Family history of ischemic heart disease and other diseases of the circulatory system
CPT/HCPCS: 36415; 70450; 70496; 70498; 71010; 80048; 80053; 80061; 81003; 82550; 82553; 83036; 84484; 85025; 85610; 85730; 93005; 93306; 93880; 95819; 96360; 99291

== ENCOUNTER 2017-11-18 23:02 | Inpatient (IN) | payer MEDICARE, BC ==
[2017-11-18] MEDS ORDERED: PANTOPRAZOLE 40 MG/10 ML VIAL IVP STA (23:13)
[2017-11-18] MEDS ORDERED: SODIUM CHLORIDE 0.9% 500 ML IV STA (23:13)
[2017-11-18] MEDS ORDERED: ONDANSETRON 4 MG/2 ML VIAL IVP STA (23:13)
--- NOTE | 2017-11-18 23:20 | ED ---
General Adult HPI - General Chief complaint: GI Bleed Stated complaint: vomiting blood Time Seen by Provider: 11/18/17 23:13 Source: EMS, RN notes reviewed, old records reviewed Mode of arrival: EMS Limitations: no limitations - History of Present Illness Initial comments: This is an 82-year-old male the ER prevention of nausea vomiting. No chest pain no bowel pain. Patient states is having dark coffee-ground type vomiting. Patient significant medical history for heart disease and multiple medical comorbidities. Patient is not on blood thinners. Denies feelings of lightheadedness dizziness or weakness. No bright red blood per rectum - Related Data Home Medications Medication Instructions Recorded Confirmed metFORMIN HCL 1,000 mg PO BID 07/17/15 11/18/17 Multivitamin [Men's Multi-Vitamin] 1 tab PO DAILY 06/25/17 11/18/17 Aspirin 325 mg PO HS 11/18/17 11/18/17 Carboxymethylcellulose Sodium 1 drop BOTH EYES BID 11/18/17 11/18/17 [Refresh Tears] Carboxymethylcellulose Sodium 1 drop BOTH EYES Q6H PRN 11/18/17 11/18/17 [Refresh Tears] Ferrous Sulfate [Feosol] 325 mg PO DAILY 11/18/17 11/18/17 Omeprazole [PriLOSEC] 20 mg PO HS 11/18/17 11/18/17 Previous Rx's Medication Instructions Recorded Atorvastatin [Lipitor] 10 mg PO HS tab 06/28/17 Allergies Allergy/AdvReac Type Severity Reaction Status Date / Time Penicillins Allergy Unknown Verified 11/18/17 23:15 Review of Systems ROS Statement: Those systems with pertinent positive or pertinent negative responses have been documented in the HPI. ROS Other: All systems not noted in ROS Statement are negative. Past Medical History Past Medical History: Heart Failure, CVA/TIA, Diabetes Mellitus, Hyperlipidemia , Myocardial Infarction ([place]), Osteoarthritis (OA), Pneumonia, Vascular Disorder Additional Past Medical History / Comment(s): Pt recently admitted to [facility] [place] on with CVA with R sided paralysis and garbled speech. Other hx: 2 previous CVAs-speech affected, NIDDM type II, bradycardia, caratid stenosis, chronic normocytic anemia, back pain, possible bilateral carpal tunnel syndrome , UTI with sepsis, vaicose veins, PVD, R femur fx with surgery, L ankle fx with surgery, R leg spasms. Last Myocardial Infarction Date:: unkn History of Any Multi-Drug Resistant Organisms: None Reported Past Surgical History: Pacemaker, Tonsillectomy Additional Past Surgical History / Comment(s): R leg ORIF with hardware, L ankle ORIF with hardware, bilateral cataract removal with lens implants, colonoscopy/EGD, L caratid endartectomy. Past Anesthesia/Blood Transfusion Reactions: No Reported Reaction Type of Cardiac Device: Permanent Pacemaker Device Placement Date:: 2010 Past Psychological History: No Psychological Hx Reported Smoking Status: Never smoker Past Alcohol Use History: None Reported Past Drug Use History: None Reported - Past Family History Brother(s) Family Medical History: CVA/TIA Mother Family Medical History: Coronary Artery Disease (CAD), CVA/TIA Father Family Medical History: CVA/TIA Additional Family Medical History / Comment(s): Tuberculosis. General Exam Limitations: no limitations General appearance: alert, in no apparent distress Head exam: Present: atraumatic, normocephalic, normal inspection Eye exam: Present: normal appearance, PERRL, EOMI. Absent: scleral icterus, conjunctival injection, periorbital swelling ENT exam: Present: normal exam, mucous membranes moist Neck exam: Present: normal inspection. Absent: tenderness, meningismus, lymphadenopathy Respiratory exam: Present: normal lung sounds bilaterally. Absent: respiratory distress, wheezes, rales, rhonchi, stridor Cardiovascular Exam: Present: regular rate, normal rhythm, normal heart sounds. Absent: systolic murmur, diastolic murmur, rubs, gallop, clicks GI/Abdominal exam: Present: soft, normal bowel sounds. Absent: distended, tenderness, guarding, rebound, rigid Extremities exam: Present: normal inspection, full ROM, normal capillary refill. Absent: tenderness, pedal edema, joint swelling, calf tenderness Back exam: Present: normal inspection Neurological exam: Present: alert, oriented X3, CN II-XII intact Psychiatric exam: Present: normal affect, normal mood Skin exam: Present: warm, dry, intact, normal color. Absent: rash Course Vital Signs 11/18/17 11/19/17 23:06 00:26 Temperature 97.6 F Pulse Rate 73 60 Respiratory 18 16 Rate Blood Pressure 110/69 109/63 O2 Sat by Pulse 100 99 Oximetry - Reevaluation(s) Reevaluation #1: 11/19/17 01:08 Medical records thoroughly reviewed Reevaluation #2: 11/19/17 01:08 Per family patient is DO NOT RESUSCITATE Reevaluation #3: 11/19/17 01:08 Cardiology called and informed of elevated troponin Medical Decision Making - Medical Decision Making 82 male the ER for evaluation of weakness and upper GI bleed, coughing and emesis, feeling weak and lightheaded. Elevated troponin, significant, no chest pain. Patient is not candidate for anticoagulation secondary to GI bleed. Will admit for continued hemodynamic support. - Lab Data Result diagrams: 11/18/17 23:23 11/18/17 23:23 Lab Results 11/18/17 11/18/17 11/18/17 Range/Units 23:23 23:23 23:23 WBC 9.8 (3.8-10.6) k/uL RBC 4.58 (4.30-5.90) m/uL Hgb 12.7 L (13.0-17.5) gm/dL Hct 40.0 (39.0-53.0) % MCV 87.5 (80.0-100.0) fL MCH 27.9 (25.0-35.0) pg MCHC 31.8 (31.0-37.0) g/dL RDW 14.4 (11.5-15.5) % Plt Count 184 (150-450) k/uL Neutrophils % 80 % Lymphocytes % 14 % Monocytes % 5 % Eosinophils % 1 % Basophils % 0 % Neutrophils # 7.9 H (1.3-7.7) k/uL Lymphocytes # 1.3 (1.0-4.8) k/uL Monocytes # 0.4 (0-1.0) k/uL Eosinophils # 0.1 (0-0.7) k/uL Basophils # 0.0 (0-0.2) k/uL PT (9.0-12.0) sec INR (<1.2) APTT (22.0-30.0) sec Sodium 144 (137-145) mmol/L Potassium 5.0 (3.5-5.1) mmol/L Chloride 99 (98-107) mmol/L Carbon Dioxide 28 (22-30) mmol/L Anion Gap 17 mmol/L BUN 37 H (9-20) mg/dL Creatinine 0.60 L (0.66-1.25) mg/dL Est GFR (CKD-EPI)AfAm >90 (>60 ml/min/1.73 sqM) Est GFR (CKD-EPI)NonAf >90 (>60 ml/min/1.73 sqM) Glucose 195 H (74-99) mg/dL Calcium 10.0 (8.4-10.2) mg/dL Magnesium 1.6 (1.6-2.3) mg/dL Total Bilirubin 0.7 (0.2-1.3) mg/dL AST 367 H (17-59) U/L ALT 53 (21-72) U/L Alkaline Phosphatase 100 (38-126) U/L Total Creatine Kinase 1206 H (55-170) U/L CK-MB (CK-2) 85.0 H* (0.0-2.4) ng/mL CK-MB (CK-2) Rel Index 7.0 Troponin I 60.400 H* (0.000-0.034) ng/mL Total Protein 8.2 (6.3-8.2) g/dL Albumin 4.0 (3.5-5.0) g/dL Lipase 36 (23-300) U/L Blood Type Blood Type Recheck Antibody Screen Spec Expiration Date 11/18/17 11/18/17 Range/Units 23:23 23:23 WBC (3.8-10.6) k/uL RBC (4.30-5.90) m/uL Hgb (13.0-17.5) gm/dL Hct (39.0-53.0) % MCV (80.0-100.0) fL MCH (25.0-35.0) pg MCHC (31.0-37.0) g/dL RDW (11.5-15.5) % Plt Count (150-450) k/uL Neutrophils % % Lymphocytes % % Monocytes % % Eosinophils % % Basophils % % Neutrophils # (1.3-7.7) k/uL Lymphocytes # (1.0-4.8) k/uL Monocytes # (0-1.0) k/uL Eosinophils # (0-0.7) k/uL Basophils # (0-0.2) k/uL PT 11.3 (9.0-12.0) sec INR 1.2 H (<1.2) APTT 21.5 L (22.0-30.0) sec Sodium (137-145) mmol/L Potassium (3.5-5.1) mmol/L Chloride (98-107) mmol/L Carbon Dioxide (22-30) mmol/L Anion Gap mmol/L BUN (9-20) mg/dL Creatinine (0.66-1.25) mg/dL Est GFR (CKD-EPI)AfAm (>60 ml/min/1.73 sqM) Est GFR (CKD-EPI)NonAf (>60 ml/min/1.73 sqM) Glucose (74-99) mg/dL Calcium (8.4-10.2) mg/dL Magnesium (1.6-2.3) mg/dL Total Bilirubin (0.2-1.3) mg/dL AST (17-59) U/L ALT (21-72) U/L Alkaline Phosphatase (38-126) U/L Total Creatine Kinase (55-170) U/L CK-MB (CK-2) (0.0-2.4) ng/mL CK-MB (CK-2) Rel Index Troponin I (0.000-0.034) ng/mL Total Protein (6.3-8.2) g/dL Albumin (3.5-5.0) g/dL Lipase (23-300) U/L Blood Type A Positive Blood Type Recheck No Antibody Screen NEGATIVE Spec Expiration Date 11/21/2017 - 2328 Critical Care Time Critical Care Time: Yes Total Critical Care Time: 31 Disposition Clinical Impression: Altered mental status, Generalized weakness, ACS (acute coronary syndrome), NSTEMI (non-ST elevated myocardial infarction), Elevated troponin, Anemia, Upper gastrointestinal hemorrhage Disposition: ADMITTED IP TO THIS HOSP Condition: Critical Referrals: Macarena Kaur MD [Primary Care Provider] - 1-2 days
[2017-11-18] MEDS: SODIUM CHLORIDE 0.9% 1,000 ML IV STA (23:25)
[2017-11-18 23:39] LABS: Basophils % (A) 0 %; Eosinophils # (A) 0.1 k/uL (0-0.7); Eosinophils % (A) 1 %; HGB 12.7 gm/dL (13.0-17.5); Lymphocytes # (A) 1.3 k/uL (1.0-4.8); Lymphocytes % (A) 14 %; MCH 27.9 pg (25.0-35.0); MCHC 31.8 g/dL (31.0-37.0); MCV 87.5 fL (80.0-100.0); Mean Platelet Volume 10.8; Monocytes # (A) 0.4 k/uL (0-1.0); Monocytes % (A) 5 %; Neutrophils # (A) 7.9 k/uL (1.3-7.7); Neutrophils % (A) 80 %; Platelet Count 184 k/uL (150-450); RBC 4.58 m/uL (4.30-5.90); RDW 14.4 % (11.5-15.5); WBC 9.8 k/uL (3.8-10.6)
[2017-11-18 23:51] LABS: ALT 53 U/L (21-72); AST 367 U/L (17-59); Alkaline Phosphatase 100 U/L (38-126); Anion Gap 17 mmol/L; Blood Urea Nitrogen 37 mg/dL (9-20); Carbon Dioxide 28 mmol/L (22-30); Chloride 99 mmol/L (98-107); Glucose 195 mg/dL (74-99); Lipase 36 U/L (23-300); Magnesium 1.6 mg/dL (1.6-2.3); Sodium 144 mmol/L (137-145); Total Bilirubin 0.7 mg/dL (0.2-1.3); Total Protein 8.2 g/dL (6.3-8.2)
[2017-11-18 23:56] LABS: INR 1.2 (<1.2); Prothrombin Time 11.3 sec (9.0-12.0)
[2017-11-19 00:01] LABS: Partial Thromboplastin Time 21.5 sec (22.0-30.0)
[2017-11-19 00:28] LABS: Troponin I 60.4 ng/mL (0.000-0.034)
[2017-11-19] MEDS ORDERED: MORPHINE ORAL SOLN 10 MG/5 ML CUP PO PRN (01:08)
[2017-11-19] MEDS ORDERED: NITROGLYCERIN SL TABS 0.4 MG TAB SUBLINGUAL PRN (01:08)
[2017-11-19] MEDS: ONDANSETRON 4 MG/2 ML VIAL IVP PRN ×2 (04:14→14:45)
[2017-11-19 05:14] LABS: Basophils % (A) 0 %; Eosinophils % (A) 0 %; HCT 37.4 % (39.0-53.0); HGB 11.7 gm/dL (13.0-17.5); Hypochromasia Slight; Lymphocytes # (A) 1.1 k/uL (1.0-4.8); Lymphocytes % (A) 10 %; MCH 27.9 pg (25.0-35.0); MCHC 31.4 g/dL (31.0-37.0); Mean Platelet Volume 10.6; Monocytes # (A) 0.6 k/uL (0-1.0); Monocytes % (A) 5 %; Neutrophils # (A) 9.4 k/uL (1.3-7.7); Neutrophils % (A) 84 %; Platelet Count 166 k/uL (150-450); RDW 14.3 % (11.5-15.5); WBC 11.1 k/uL (3.8-10.6)
--- NOTE | 2017-11-19 05:37 | XR ---
EXAM: XR Chest, 2 Views CLINICAL HISTORY: ITS.REASON XR Reason: possible aspiration TECHNIQUE: Frontal and lateral views of the chest. COMPARISON: Chest x-ray dated 06/24/2017. FINDINGS: Lungs: Reidentified mild interstitial prominence throughout both lungs suggestive of chronic lung disease. This appears slightly more prominent within the right upper lobe compared with the prior exam, of uncertain significance. Pleural space: Unremarkable. No pneumothorax. Heart: Unremarkable. No cardiomegaly. Mediastinum: Unremarkable. Bones/joints: Mild degenerative changes of the thoracic spine. Mild degenerative changes of the left acromioclavicular joint. Tubes, lines and devices: 2-lead AICD overlying the left chest wall. IMPRESSION: Reidentified mild interstitial prominence throughout both lungs suggestive of chronic lung disease. This appears slightly more prominent within the right upper lobe compared with the prior exam, of uncertain significance. Please correlate for any signs/symptoms of pneumonia.
[2017-11-19 06:03] LABS: Creatine Kinase MB 60.4 ng/mL (0.0-2.4)
[2017-11-19 06:04] LABS: Troponin I 60.9 ng/mL (0.000-0.034)
[2017-11-19 06:21] LABS: Glucose,Whole Blood 190 mg/dL (75-99)
[2017-11-19] MEDS: INSULIN ASPART 100 UNIT/ML 1 ML 10 ML VIAL SQ SCH ×4 (06:35→21:26)
[2017-11-19] MEDS: SODIUM CHLORIDE 0.9% 1,000 ML IV STA (08:41)
--- NOTE | 2017-11-19 08:42 | P.CRDCN ---
History of Present Illness Consult date: 11/19/17 Chief complaint: Nausea and vomiting History of present illness: This is an 82-year-old gentleman who I see in the office as an outpatient with a past medical history significant for permanent pacemaker, chronic atrial fibrillation not on any anticoagulation because the patient refused to take any anticoagulation, and subsequently he suffered from multiple stroke with the last one put him at expressive aphasia, as well as diabetes, was brought from an extended care facility to the hospital because of nausea and vomiting. It was noticed that the patient was having coffee ground emesis. The hemoglobin was around 11 and he is baseline is between 10-11. More importantly, the cardiac enzymes came in to be severe elevated with a troponin of about 50. The EKG showed ventricular paced rhythm with a baseline of atrial fibrillation. Currently the patient is not experiencing any chest pain or chest discomfort. Hemodynamically, he is slightly unstable with a pressure around 80 mmHg. The gastrointestinal and surgical service is on consult at this point. I am going to give the patient bolus of 200 mm of 0.9 normal saline to get the pressure better. Beside that I would continue holding aspirin in view of possible GI bleeding. Overall I would consider a conservative medical approach for this is-year-old gentleman with a very poor functional capacity and history of stroke in the past. Also the CODE STATUS should be assessed for him. We will follow-up with the echocardiogram which was performed earlier today. Past Medical History Past Medical History: Heart Failure, CVA/TIA, Diabetes Mellitus, Hyperlipidemia , Hypertension, Myocardial Infarction ([place]), Osteoarthritis (OA), Pneumonia, Vascular Disorder Additional Past Medical History / Comment(s): Pt recently admitted to [facility] on with CVA with R sided paralysis and garbled speech. Other hx: 2 previous CVAs-speech affected, NIDDM type II, bradycardia, caratid stenosis, chronic normocytic anemia, back pain, possible bilateral carpal tunnel syndrome , UTI with sepsis, vaicose veins, PVD, R femur fx with surgery, L ankle fx with surgery, R leg spasms. Last Myocardial Infarction Date:: unkn History of Any Multi-Drug Resistant Organisms: None Reported Past Surgical History: Pacemaker, Tonsillectomy Additional Past Surgical History / Comment(s): R leg ORIF with hardware, L ankle ORIF with hardware, bilateral cataract removal with lens implants, colonoscopy/EGD, L caratid endartectomy. Past Anesthesia/Blood Transfusion Reactions: No Reported Reaction Type of Cardiac Device: Permanent Pacemaker Device Placement Date:: 2010 Past Psychological History: No Psychological Hx Reported Smoking Status: Unknown if ever smoked Past Alcohol Use History: None Reported Past Drug Use History: None Reported - Past Family History Brother(s) Family Medical History: CVA/TIA Mother Family Medical History: Coronary Artery Disease (CAD), CVA/TIA Father Family Medical History: CVA/TIA Additional Family Medical History / Comment(s): Tuberculosis. Medications and Allergies Home Medications Medication Instructions Recorded Confirmed Type metFORMIN HCL 1,000 mg PO BID 07/17/15 11/18/17 History Multivitamin [Men's Multi-Vitamin] 1 tab PO DAILY 06/25/17 11/18/17 History Atorvastatin [Lipitor] 10 mg PO HS tab 06/28/17 11/18/17 Rx Aspirin 325 mg PO HS 11/18/17 11/18/17 History Carboxymethylcellulose Sodium 1 drop BOTH EYES BID 11/18/17 11/18/17 History [Refresh Tears] Carboxymethylcellulose Sodium 1 drop BOTH EYES Q6H PRN 11/18/17 11/18/17 History [Refresh Tears] Ferrous Sulfate [Feosol] 325 mg PO DAILY 11/18/17 11/18/17 History Omeprazole [PriLOSEC] 20 mg PO HS 11/18/17 11/18/17 History Allergies Allergy/AdvReac Type Severity Reaction Status Date / Time Penicillins Allergy Unknown Verified 11/18/17 23:15 Physical Exam Vitals: Vital Signs Temp Pulse Pulse Resp BP BP Pulse Ox 11/19/17 04:00 97.1 F L 61 20 85/46 100 11/19/17 02:36 86 19 11/19/17 02:00 96.7 F L 86 19 99/56 96 11/19/17 01:43 97.8 F 62 16 115/64 100 11/19/17 01:18 96.7 F L 86 19 99/56 96 11/19/17 00:26 60 16 109/63 99 11/18/17 23:06 97.6 F 73 18 110/69 100 Intake and Output 11/18/17 11/19/17 11/19/17 22:59 06:59 14:59 Intake Total 800 0 Balance 800 0 Intake: Intake, IV Titration 800 Amount Sodium Chloride 0.9% 1, 800 000 ml @ 100 mls/hr IV . Q10H STA Rx#:[id number] Oral 0 Other: Voiding Method Diaper Weight 59.5 kg - Constitutional General appearance: no acute distress - Respiratory Respiratory: bilateral: CTA - Cardiovascular Rhythm: regular Heart sounds: normal: S1, S2 Results 11/19/17 04:49 11/18/17 23:23 Cardiac Enzymes 11/18/17 11/18/17 11/19/17 Range/Units 23:23 23:23 04:49 AST 367 H (17-59) U/L CK-MB (CK-2) 85.0 H* 60.4 H* (0.0-2.4) ng/mL Troponin I 60.400 H* 60.900 H* (0.000-0.034) ng/mL Coagulation 11/18/17 Range/Units 23:23 PT 11.3 (9.0-12.0) sec APTT 21.5 L (22.0-30.0) sec CBC 11/18/17 11/19/17 Range/Units 23:23 04:49 WBC 9.8 11.1 H (3.8-10.6) k/uL RBC 4.58 4.20 L (4.30-5.90) m/uL Hgb 12.7 L 11.7 L (13.0-17.5) gm/dL Hct 40.0 37.4 L (39.0-53.0) % Plt Count 184 166 (150-450) k/uL Comprehensive Metabolic Panel 11/18/17 Range/Units 23:23 Sodium 144 (137-145) mmol/L Potassium 5.0 (3.5-5.1) mmol/L Chloride 99 (98-107) mmol/L Carbon Dioxide 28 (22-30) mmol/L BUN 37 H (9-20) mg/dL Creatinine 0.60 L (0.66-1.25) mg/dL Glucose 195 H (74-99) mg/dL Calcium 10.0 (8.4-10.2) mg/dL AST 367 H (17-59) U/L ALT 53 (21-72) U/L Alkaline Phosphatase 100 (38-126) U/L Total Protein 8.2 (6.3-8.2) g/dL Albumin 4.0 (3.5-5.0) g/dL Current Medications Generic Name Dose Route Start Last Admin Trade Name Freq PRN Reason Stop Dose Admin Sodium Chloride 1,000 mls @ 100 mls/hr 11/18/17 23:13 11/18/17 23:25 Saline 0.9% IV 11/19/17 09:12 100 mls/hr .Q10H STA Administration Insulin Aspart 0 unit 11/19/17 07:30 11/19/17 06:35 Novolog SQ Not Given ACHS SAUL Protocol Morphine Sulfate 12 mg 11/19/17 01:08 Morphine Oral Yesy 2mg/Ml PO Q5M PRN Chest Pain Nitroglycerin 0.4 mg 11/19/17 01:08 Nitrostat SUBLINGUAL Q5M PRN Chest Pain Ondansetron HCl 4 mg 11/19/17 01:10 11/19/17 04:14 Zofran IVP 4 mg Q6HR PRN Administration Nausea And Vomiting Pantoprazole Sodium 40 mg 11/19/17 09:00 Protonix IVP BID SAUL Intake and Output 11/18/17 11/19/17 11/19/17 22:59 06:59 14:59 Intake Total 800 0 Balance 800 0 Intake: Intake, IV Titration 800 Amount Sodium Chloride 0.9% 1, 800 000 ml @ 100 mls/hr IV . Q10H STA Rx#:[id number] Oral 0 Other: Voiding Method Diaper Weight 59.5 kg 11/19/17 04:49 11/18/17 23:23 Assessment and Plan Assessment: Assessment #1 coffee-ground emesis. GI bleeding to be ruled out #2 severe nausea and vomiting seems to be slightly better this morning #3 acute non-ST elevation myocardial infarction #4 chronic atrial fibrillation #5 permanent pacemaker implantation Plan #1 follow-up on the echocardiogram to assess the LV function #2 continue holding any antiplatelet at this point of time. #3 awaiting the GI and surgical input for the patient #4 the bolus of IV fluid to improve the blood pressure #5 follow-up with the patient. We'll continue following up with him.
[2017-11-19] MEDS ORDERED: SODIUM CHLORIDE 0.9% 250 ML IV SCH (08:45)
[2017-11-19] MEDS: PANTOPRAZOLE 40 MG/10 ML VIAL IVP SCH ×2 (09:08→20:10)
--- NOTE | 2017-11-19 11:07 | ECHOF ---
Referral Reason:elevTrop MEASUREMENTS -------- HEIGHT: 172.7 cm WEIGHT: 72.6 kg BP: 85/46 IVSd: 1.3 cm (0.6 - 1.1) LVIDd: 4.7 cm (3.9 - 5.3) LVPWd: 1.3 cm (0.6 - 1.1) IVSs: 1.6 cm LVIDs: 3.6 cm LVPWs: 1.7 cm LA Diam: 3.8 cm (2.7 - 3.8) LAESV Index (A-L): 37.58 ml/m Ao Diam: 3.4 cm (2.0 - 3.7) AV Cusp: 2.0 cm (1.5 - 2.6) LA Diam: 4.3 cm (2.7 - 3.8) MV EXCURSION: 18.395 mm (> 18.000) MV EF SLOPE: 56 mm/s (70 - 150) EPSS: 2.8 cm MV E Nabeel: 0.71 m/s MV DecT: 138 ms MV A Nabeel: 0.30 m/s MV E/A Ratio: 2.35 RAP: 5.00 mmHg RVSP: 44.53 mmHg FINDINGS -------- Paced rhythm. This was a technically adequate study. The left ventricular size is normal. There is mild concentric left ventricular hypertrophy. There is severe global hypokinesis of LV . Overall left ventricular systolic function is severely impair ed with, an EF < 20%. Mid anterior LV wall motion is hypokinetic. Anterseptal Hypokinesis Late ral hypokinesis Inferior Hypokinesis Septal Hypokinesis [place] Hypokinesis. The right ventricle is normal in size. The right atrial size is normal. There is mild aortic valve sclerosis. There is no evidence of aortic regurgitation. Mild mitral annular calcification present. [id number] mitral regurgitation is present. Mild tricuspid regurgitation present. There is mild pulmonary hypertension. The right ventricular systolic pressure, as measured by Doppler, is 44.53mmHg. There is no pulmonic regurgitation present. The aortic root size is normal. There is no pericardial effusion. CONCLUSIONS -------- 1. Paced rhythm. 2. The left ventricular size is normal. 3. There is mild concentric left ventricular hypertrophy. 4. There is severe global hypokinesis of LV . 5. Overall left ventricular systolic function is severely impaired with, an EF < 20%. 6. Mid anterior LV wall motion is hypokinetic. 7. Anterseptal Hypokinesis 8. Lateral hypokinesis 9. Inferior Hypokinesis 10. Septal Hypokinesis 11. [place] Hypokinesis. 12. There is mild aortic valve sclerosis. 13. Mild mitral annular calcification present. 14. Mild tricuspid regurgitation present. 15. There is mild pulmonary hypertension. 16. The right ventricular systolic pressure, as measured by Doppler, is 44.53mmHg. 17. There is no pulmonic regurgitation present. 18. The aortic root size is normal. 19. There is no pericardial effusion. TRAUMA REGISTRAR: Michelle Preston RDCS
[2017-11-19 12:09] LABS: Glucose,Whole Blood 199 mg/dL (75-99)
[2017-11-19 12:28] LABS: Creatine Kinase MB 46.7 ng/mL (0.0-2.4); Troponin I 60.5 ng/mL (0.000-0.034)
--- NOTE | 2017-11-19 12:58 | P.HPIM ---
History of Present Illness 82-year-old pleasant gentleman was transferred from a senior living after he had a couple episodes of GI bleed. Patient is found to have highly elevated troponin probably non-ST elevation microinfarction although he denies any chest pain. Patient was comparing of some abdominal discomfort was dry heaving today morning. Patient does have history of atrial fibrillation strokes and vascular dementia related to that and patient does have some chronic weakness and state muscle stiffness no new weakness. Patient is on aspirin patient declined to take anti-coagulation the past because of which patient is not on anti- coagulation at this point of time patient is not a candidate for anti- coagulation at this time because of his GI bleed. Patient was a valid by cardiology patient is found to have ejection fraction of 20% IV fluids will be discussed in your patient will evaluated by gastroenterology.patient does have minimally elevated JVD and patient's aspirin is being held. Review of Systems REVIEW OF SYSTEMS: CONSTITUTIONAL: No fever, no malaise, no fatigue. HEENT: No recent visual problems or hearing problems. Denied any sore throat. CARDIOVASCULAR: No chest pain, orthopnea, PND, no palpitations, no syncope. PULMONARY: No shortness of breath, no cough, no hemoptysis. GASTROINTESTINAL: As mentioned in HPI NEUROLOGICAL: No headaches, no weakness, no numbness. HEMATOLOGICAL: Denies any bleeding or petechiae. GENITOURINARY: Denies any burning micturition, frequency, or urgency. MUSCULOSKELETAL/RHEUMATOLOGICAL: Denies any joint pain, swelling, or any muscle pain. ENDOCRINE: Denies any polyuria or polydipsia. The rest of the 14-point review of systems is negative. Past Medical History Past Medical History: Heart Failure, CVA/TIA, Diabetes Mellitus, Hyperlipidemia , Hypertension, Myocardial Infarction (ME), Osteoarthritis (OA), Pneumonia, Vascular Disorder Additional Past Medical History / Comment(s): Pt recently admitted to [facility] on with CVA with R sided paralysis and garbled speech. Other hx: 2 previous CVAs-speech affected, NIDDM type II, bradycardia, caratid stenosis, chronic normocytic anemia, back pain, possible bilateral carpal tunnel syndrome , UTI with sepsis, vaicose veins, PVD, R femur fx with surgery, L ankle fx with surgery, R leg spasms. Last Myocardial Infarction Date:: unkn History of Any Multi-Drug Resistant Organisms: None Reported Past Surgical History: Pacemaker, Tonsillectomy Additional Past Surgical History / Comment(s): R leg ORIF with hardware, L ankle ORIF with hardware, bilateral cataract removal with lens implants, colonoscopy/EGD, L caratid endartectomy. Past Anesthesia/Blood Transfusion Reactions: No Reported Reaction Type of Cardiac Device: Permanent Pacemaker Device Placement Date:: 2010 Past Psychological History: No Psychological Hx Reported Smoking Status: Unknown if ever smoked Past Alcohol Use History: None Reported Past Drug Use History: None Reported - Past Family History Brother(s) Family Medical History: CVA/TIA Mother Family Medical History: Coronary Artery Disease (CAD), CVA/TIA Father Family Medical History: CVA/TIA Additional Family Medical History / Comment(s): Tuberculosis. Medications and Allergies Home Medications Medication Instructions Recorded Confirmed Type metFORMIN HCL 1,000 mg PO BID 07/17/15 11/18/17 History Multivitamin [Men's Multi-Vitamin] 1 tab PO DAILY 06/25/17 11/18/17 History Atorvastatin [Lipitor] 10 mg PO HS tab 06/28/17 11/18/17 Rx Aspirin 325 mg PO HS 11/18/17 11/18/17 History Carboxymethylcellulose Sodium 1 drop BOTH EYES BID 11/18/17 11/18/17 History [Refresh Tears] Carboxymethylcellulose Sodium 1 drop BOTH EYES Q6H PRN 11/18/17 11/18/17 History [Refresh Tears] Ferrous Sulfate [Feosol] 325 mg PO DAILY 11/18/17 11/18/17 History Omeprazole [PriLOSEC] 20 mg PO HS 11/18/17 11/18/17 History Allergies Allergy/AdvReac Type Severity Reaction Status Date / Time Penicillins Allergy Unknown Verified 11/18/17 23:15 Physical Exam Vitals: Vital Signs Temp Pulse Pulse Resp BP BP Pulse Ox 11/19/17 12:00 60 11/19/17 11:18 97.1 F L 60 18 102/61 100 11/19/17 08:00 61 18 97/60 100 11/19/17 04:00 97.1 F L 61 20 85/46 100 11/19/17 02:36 86 19 11/19/17 02:00 96.7 F L 86 19 99/56 96 11/19/17 01:43 97.8 F 62 16 115/64 100 11/19/17 01:18 96.7 F L 86 19 99/56 96 11/19/17 00:26 60 16 109/63 99 11/18/17 23:06 97.6 F 73 18 110/69 100 Intake and Output 11/18/17 11/19/17 11/19/17 22:59 06:59 14:59 Intake Total 800 0 Balance 800 0 Intake: Intake, IV Titration 800 Amount Sodium Chloride 0.9% 1, 800 000 ml @ 100 mls/hr IV . Q10H STA Rx#:[id number] Oral 0 Other: Voiding Method Diaper Diaper Weight 59.5 kg PHYSICAL EXAMINATION: GENERAL: The patient is alert and oriented x3, not in any acute distress. thin built. HEENT: Pupils are round and equally reacting to light. EOMI. No scleral icterus. No conjunctival pallor. Normocephalic, atraumatic. No pharyngeal erythema. No thyromegaly. CARDIOVASCULAR: S1 and S2 present. No murmurs, rubs, patient does have elevated JVD and probably S3 gallop PULMONARY: Chest is clear to auscultation, no wheezing or crackles. ABDOMEN: Soft, nontender, nondistended, normoactive bowel sounds. No palpable organomegaly. MUSCULOSKELETAL: No joint swelling or deformity. EXTREMITIES: No cyanosis, clubbing, or pedal edema. NEUROLOGICAL: Gross neurological examination did not reveal any new focal deficits. She does have chronic weakness and contractures SKIN: No rashes. Results CBC & Chem 7: 11/19/17 04:49 11/18/17 23:23 Labs: Abnormal Lab Results - Last 24 Hours (Table) 11/18/17 11/18/17 11/18/17 Range/Units 23:23 23:23 23:23 WBC (3.8-10.6) k/uL RBC (4.30-5.90) m/uL Hgb 12.7 L (13.0-17.5) gm/dL Hct (39.0-53.0) % Neutrophils # 7.9 H (1.3-7.7) k/uL INR (<1.2) APTT (22.0-30.0) sec BUN 37 H (9-20) mg/dL Creatinine 0.60 L (0.66-1.25) mg/dL Glucose 195 H (74-99) mg/dL POC Glucose (mg/dL) (75-99) mg/dL AST 367 H (17-59) U/L Total Creatine Kinase 1206 H (55-170) U/L CK-MB (CK-2) 85.0 H* (0.0-2.4) ng/mL Troponin I 60.400 H* (0.000-0.034) ng/mL 11/18/17 11/19/17 11/19/17 Range/Units 23:23 04:49 04:49 WBC 11.1 H (3.8-10.6) k/uL RBC 4.20 L (4.30-5.90) m/uL Hgb 11.7 L (13.0-17.5) gm/dL Hct 37.4 L (39.0-53.0) % Neutrophils # 9.4 H (1.3-7.7) k/uL INR 1.2 H (<1.2) APTT 21.5 L (22.0-30.0) sec BUN (9-20) mg/dL Creatinine (0.66-1.25) mg/dL Glucose (74-99) mg/dL POC Glucose (mg/dL) (75-99) mg/dL AST (17-59) U/L Total Creatine Kinase 1021 H (55-170) U/L CK-MB (CK-2) 60.4 H* (0.0-2.4) ng/mL Troponin I 60.900 H* (0.000-0.034) ng/mL 11/19/17 11/19/17 11/19/17 Range/Units 06:20 11:13 11:54 WBC (3.8-10.6) k/uL RBC (4.30-5.90) m/uL Hgb (13.0-17.5) gm/dL Hct (39.0-53.0) % Neutrophils # (1.3-7.7) k/uL INR (<1.2) APTT (22.0-30.0) sec BUN (9-20) mg/dL Creatinine (0.66-1.25) mg/dL Glucose (74-99) mg/dL POC Glucose (mg/dL) 190 H 199 H (75-99) mg/dL AST (17-59) U/L Total Creatine Kinase 873 H (55-170) U/L CK-MB (CK-2) 46.7 H* (0.0-2.4) ng/mL Troponin I 60.500 H* (0.000-0.034) ng/mL Thrombosis Risk Factor Assmnt - Choose All That Apply Any of the Below Risk Factors Present?: Yes Each Factor Represents 1 point: Abnormal pulmonary function (COPD), Acute ME Other Risk Factors: Yes Each Risk Factor Represents 2 Points: Patient confined to bed Each Risk Factor Represents 3 Points: Age 75 years or older Other congenital or acquired thrombophilia - If yes, enter type in comment: No Thrombosis Risk Factor Assessment Total Risk Factor Score: 7 Thrombosis Risk Factor Assessment Level: High Risk Assessment and Plan Plan: -Acute blood loss anemia from upper GI bleed probably peptic ulcer disease patient is on Protonix, gastric body will a valid the patient although antiplatelet medicines with discontinue. -Possible acute microinfarction possible non-ST elevation microinfarction there may be a contribution from acute GI bleed, patient is not a candidate for antiplatelet therapy or heparin at this point of time because of acute GI bleed. -Atrial fibrillation presently rate controlled on anticoagulation. -Congestive heart failure acute as well as chronic systolic dysfunction previous ejection fraction being 40% presently now 20% with significant wall motion abnormalities from possible acute myocardial infarction. Patient is not in acute exacerbation at this point of time. -History of CVAs in the past Hyperlipidemia Hearing problems -generalized deconditioning extreme report functionality
[2017-11-19 13:12] LABS: Hemoglobin A1C 6.4 % (4.0-6.0)
--- NOTE | 2017-11-19 15:05 | CONS ---
CONSULTATION DATE OF CONSULTATION: 11/19/2017. REASON FOR CONSULTATION: Acute upper GI bleed. HISTORY OF PRESENT ILLNESS: The patient is an 82-year-old pleasant white male with history of CVA in the past, was admitted to the hospital after having several episodes of coffee-ground emesis. Patient presently is in a group home. He has history of A. fib, but has not been on any anticoagulation other than aspirin. He denies any abdominal pain. No diarrhea or rectal bleeding. No melena. He came to the emergency room and subsequently was also noted to have elevated troponin levels and Cardiology has been consulted, who plan on conservative approach for the patient. He denies any NSAID use. No prior history of peptic ulcer disease. Does not recall ever having an upper endoscopy in the past. PAST MEDICAL HISTORY: Significant for TIA, congestive heart failure, diabetes mellitus, A. fib, hypertension, hyperlipidemia, peripheral vascular disease. PAST SURGICAL HISTORY: Right leg ORIF, left carotid endarterectomy, bilateral cataract surgery, prior history of colonoscopy, permanent pacemaker implantation. MEDICATIONS: At home include metformin, multivitamin, Lipitor, aspirin, Feosol, Prilosec. ALLERGIES: PENICILLIN. SOCIAL HISTORY: No smoking or alcohol use. FAMILY HISTORY: Mother had coronary artery disease. Father had CVA. REVIEW OF SYSTEMS: CARDIOPULMONARY: No chest pain, shortness of breath. GENITOURINARY: No dysuria, hematuria. MUSCULOSKELETAL: Unremarkable. SKIN: Unremarkable. ENDOCRINE: Unremarkable. PSYCHIATRIC: Unremarkable. NEUROLOGY: History of CVA with hemiparesis. ENDOCRINE: Unremarkable. HEMATOLOGY: Unremarkable. CARDIOPULMONARY: No chest pain. PHYSICAL EXAMINATION: He appears comfortable, in no apparent distress. Vital signs are stable. Blood pressure 102/61, pulse rate 60, temperature 97.1. HEENT Examination unremarkable.: Conjunctivae are pink. Sclerae nonicteric. Oral cavity no lesions. NECK: No JVD or lymph node enlargement. Chest was clear to auscultation. HEART: Regular rate and rhythm. ABDOMEN: Soft. Bowel sounds are positive. No organomegaly. EXTREMITIES: No pedal edema. SKIN: No rashes. NEURO: Alert and oriented x3. No focal deficits. LABS: WBC 9.8, hemoglobin 12.7. This morning hemoglobin is 11.7, platelets are normal. INR 1.2. BUN 37, creatinine 0.6. Troponin was 60 and this morning it is 60. Lipase is normal. IMPRESSION: 1. This is a patient who was admitted to the hospital with several episodes of coffee- ground emesis that happened yesterday evening. Hemoglobin dropped from 12 to 11.5 g/dL. Clinically, he is stable. No active bleeding since being in the hospital. Last hemoglobin 11.5 g/dL, possibly upper GI source of bleeding from peptic ulcer disease. Presently on IV Protonix. 2. History of coronary artery disease, elevated troponin at 60. Cardiology evaluated the patient. Apparently he was evaluated by Dr. Cole and the plan is to continue with conservative approach. No plans on any cardiac intervention. RECOMMENDATIONS: 1. Clear liquid diet. 2. IV Protonix. 3. CBC in the morning. 4. Will proceed with an upper endoscopy and I discussed with Cardiology who agree for endoscopic intervention. Thank you for this consultation. SRIDEVI / UZIEL: [id number] /
[2017-11-19] MEDS ORDERED: ARTIFICIAL TEARS-HYPROMELLOSE DROPS 15 ML BTL BOTH EYES PRN (15:21)
[2017-11-19 16:51] LABS: Glucose,Whole Blood 147 mg/dL (75-99)
[2017-11-19] MEDS: ARTIFICIAL TEARS-HYPROMELLOSE DROPS 15 ML BTL BOTH EYES SCH (20:46)
[2017-11-19 21:09] LABS: Glucose,Whole Blood 193 mg/dL (75-99)
[2017-11-20 06:01] LABS: HCT 37.4 % (39.0-53.0); HGB 11.8 gm/dL (13.0-17.5); Hypochromasia Slight; MCH 28.1 pg (25.0-35.0); MCHC 31.5 g/dL (31.0-37.0); MCV 89.2 fL (80.0-100.0); Mean Platelet Volume 10.9; Platelet Count 163 k/uL (150-450); RDW 14.5 % (11.5-15.5); WBC 13.7 k/uL (3.8-10.6)
[2017-11-20 06:21] LABS: Anion Gap 15 mmol/L; Blood Urea Nitrogen 54 mg/dL (9-20); Calcium 9.3 mg/dL (8.4-10.2); Carbon Dioxide 25 mmol/L (22-30); Chloride 102 mmol/L (98-107); Cholesterol 124 mg/dL (<200); Glucose 172 mg/dL (74-99); HDL Cholesterol 52 mg/dL (40-60); LDL Cholesterol,Calculated 55 mg/dL (0-99); Potassium 5.1 mmol/L (3.5-5.1); Sodium 142 mmol/L (137-145); Triglycerides 83 mg/dL (<150)
[2017-11-20 06:33] LABS: Glucose,Whole Blood 184 mg/dL (75-99)
[2017-11-20] MEDS: INSULIN ASPART 100 UNIT/ML 1 ML 10 ML VIAL SQ SCH ×4 (06:43→20:52)
[2017-11-20] MEDS ORDERED: ETOMIDATE 2 MG/ML 10 ML VIAL ONE (07:57)
[2017-11-20] MEDS ORDERED: LIDOCAINE 1% INJ 10MG/ML (20 ML MDV) ONE (07:57)
[2017-11-20] MEDS ORDERED: IV FLUID CONTINUATION 300 ML IV ONE (08:01)
--- NOTE | 2017-11-20 08:16 | P.PCN ---
Date of Procedure: 11/20/17 Procedure(s) Performed: BRIEF HISTORY: Patient is a 82-year-old, pleasant, white male, admitted to the hospital because of upper GI bleed. Had multiple episodes of coffee-ground emesis. Hemoglobin remained stable at 11.5 g/dL. He scheduled for an upper endoscopy to evaluate further. PROCEDURE PERFORMED: Esophagogastroduodenoscopy. PREOPERATIVE DIAGNOSIS: Acute upper GI bleed. IV sedation per anesthesia. PROCEDURE: After informed consent was obtained, the patient was brought into the endoscopy unit. IV sedation was administered by Anesthesia under continuous monitoring. Initially the Olympus GIF-140 video endoscope was inserted into the mouth. Esophagus intubated without any difficulty. It was gradually advanced into the stomach and duodenum and carefully examined. The bulb and the second part of the duodenum appeared normal. The scope at this time was withdrawn to the stomach, adequately insufflated with air, and upon careful examination, mucosa of the antrum, body, had scattered erosions consistent with gastritis. The cardia and the fundus appeared normal. The scope was then withdrawn into the esophagus. The GE junction was located at 39 cm from the incisors. The esophagus appeared normal. There were no erosions or ulcerations seen and the patient tolerated the procedure well. IMPRESSION: 1. Antral gastritis. 2. No evidence of esophagitis or peptic ulcer disease. 3. No evidence of active upper GI bleed. RECOMMENDATIONS: The findings of this examination were discussed with the patient as well as his family. Continue on Protonix 40 mg daily and advance diet as tolerated..
--- NOTE | 2017-11-20 09:49 | P.PN ---
Subjective Progress Note Date: 11/20/17 Principal diagnosis: A. fib/stroke This is an 82-year-old gentleman who I see in the office as an outpatient with a past medical history significant for permanent pacemaker, chronic atrial fibrillation not on any anticoagulation because the patient refused to take any anticoagulation, and subsequently he suffered from multiple stroke with the last one put him at expressive aphasia, as well as diabetes, was brought from an extended care facility to the hospital because of nausea and vomiting. It was noticed that the patient was having coffee ground emesis. The hemoglobin was around 11 and he is baseline is between 10-11. More importantly, the cardiac enzymes came in to be severe elevated with a troponin of about 50. The EKG showed ventricular paced rhythm with a baseline of atrial fibrillation. Currently the patient is not experiencing any chest pain or chest discomfort. Hemodynamically, he is slightly unstable with a pressure around 80 mmHg. The patient underwent an upper endoscopy which revealed only gastritis. The echocardiogram revealed severe LV dysfunction with an ejection fraction of 20%. Hemodynamically the patient continues to be hypotensive. His heart rate has been controlled. Objective - Vital Signs Vital signs: Vital Signs Temp 97.7 F 11/19/17 23:37 Pulse 67 11/20/17 04:00 Resp 16 11/20/17 04:00 BP 94/52 11/20/17 04:00 Pulse Ox 100 11/20/17 04:00 Intake & Output 11/19/17 11/20/17 11/20/17 18:59 06:59 18:59 Intake Total 800 50 Balance 800 50 Weight 70 kg Intake: IV 50 Intake, IV Titration 800 Amount Sodium Chloride 0.9% 1, 800 000 ml @ 100 mls/hr IV . Q10H STA Rx#:[id number] Oral 0 Other: Voiding Method Diaper Diaper Diaper # Voids 2 1 # Bowel Movements 1 - Constitutional General appearance: Present: no acute distress - Labs CBC & Chem 7: 11/20/17 05:30 11/20/17 05:30 Labs: Abnormal Lab Results - Last 24 Hours (Table) 11/19/17 11/19/17 11/19/17 Range/Units 04:49 11:13 11:54 WBC (3.8-10.6) k/uL RBC (4.30-5.90) m/uL Hgb (13.0-17.5) gm/dL Hct (39.0-53.0) % BUN (9-20) mg/dL Glucose (74-99) mg/dL POC Glucose (mg/dL) 199 H (75-99) mg/dL Hemoglobin A1c 6.4 H (4.0-6.0) % Total Creatine Kinase 873 H (55-170) U/L CK-MB (CK-2) 46.7 H* (0.0-2.4) ng/mL Troponin I 60.500 H* (0.000-0.034) ng/mL 11/19/17 11/19/17 11/20/17 Range/Units 16:48 21:00 05:30 WBC (3.8-10.6) k/uL RBC (4.30-5.90) m/uL Hgb (13.0-17.5) gm/dL Hct (39.0-53.0) % BUN 54 H (9-20) mg/dL Glucose 172 H (74-99) mg/dL POC Glucose (mg/dL) 147 H 193 H (75-99) mg/dL Hemoglobin A1c (4.0-6.0) % Total Creatine Kinase (55-170) U/L CK-MB (CK-2) (0.0-2.4) ng/mL Troponin I (0.000-0.034) ng/mL 11/20/17 11/20/17 Range/Units 05:30 06:30 WBC 13.7 H (3.8-10.6) k/uL RBC 4.20 L (4.30-5.90) m/uL Hgb 11.8 L (13.0-17.5) gm/dL Hct 37.4 L (39.0-53.0) % BUN (9-20) mg/dL Glucose (74-99) mg/dL POC Glucose (mg/dL) 184 H (75-99) mg/dL Hemoglobin A1c (4.0-6.0) % Total Creatine Kinase (55-170) U/L CK-MB (CK-2) (0.0-2.4) ng/mL Troponin I (0.000-0.034) ng/mL Assessment and Plan Assessment: Assessment #1 coffee-ground emesis. GI bleeding to be ruled out #2 severe nausea and vomiting seems to be slightly better this morning #3 acute non-ST elevation myocardial infarction #4 chronic atrial fibrillation #5 permanent pacemaker implantation Plan #1 the patient underwent an upper endoscopy which revealed no active bleeding #2 I will give the patient a bolus of 100 of 0.9 normal saline #3 the echocardiogram revealed impaired LV function with EF of 20% #4 overall the prognosis is very poor but the patient is not a candidate to undergo any invasive procedure like heart catheterization #5 once the blood pressure improved we will start the patient on the cardiomyopathy medications including beta susan, NANY inhibitor, and Aldactone #6 we will continue following up with him We'll continue following up with him.
[2017-11-20] MEDS: PANTOPRAZOLE 40 MG/10 ML VIAL IVP SCH ×2 (10:45→20:11)
[2017-11-20] MEDS: ARTIFICIAL TEARS-HYPROMELLOSE DROPS 15 ML BTL BOTH EYES SCH ×2 (10:45→20:11)
[2017-11-20 11:56] LABS: Glucose,Whole Blood 196 mg/dL (75-99)
--- NOTE | 2017-11-20 12:47 | P.PN ---
Subjective 82-year-old admitted for GI bleed and also found to have non-ST elevation microinfarction. Patient went upper GI endoscopy which showed active bleeding and the gastritis. Which improved now no more blood in the stools but patient is comparing of pain in the rectal area secondary to hemorrhoids will use Anusol cream patient is not on any antiplatelet therapy or heparin because of GI bleed. Objective - Vital Signs Vital signs: Vital Signs Temp 97.7 F 11/19/17 23:37 Pulse 65 11/20/17 11:12 Resp 14 11/20/17 11:12 BP 97/68 11/20/17 11:12 Pulse Ox 99 11/20/17 11:12 Intake & Output 11/19/17 11/20/17 11/20/17 18:59 06:59 18:59 Intake Total 800 50 Balance 800 50 Weight 70 kg Intake: IV 50 Intake, IV Titration 800 Amount Sodium Chloride 0.9% 1, 800 000 ml @ 100 mls/hr IV . Q10H STA Rx#:[id number] Oral 0 Other: Voiding Method Diaper Diaper Diaper # Voids 2 1 # Bowel Movements 1 1 - Exam PHYSICAL EXAMINATION: GENERAL: The patient is alert and oriented x3, not in any acute distress. thin built. HEENT: Pupils are round and equally reacting to light. EOMI. No scleral icterus. No conjunctival pallor. Normocephalic, atraumatic. No pharyngeal erythema. No thyromegaly. CARDIOVASCULAR: S1 and S2 present. No murmurs, rubs, patient does have elevated JVD and probably S3 gallop PULMONARY: Chest is clear to auscultation, no wheezing or crackles. ABDOMEN: Soft, nontender, nondistended, normoactive bowel sounds. No palpable organomegaly. MUSCULOSKELETAL: No joint swelling or deformity. EXTREMITIES: No cyanosis, clubbing, or pedal edema. NEUROLOGICAL: Gross neurological examination did not reveal any new focal deficits. She does have chronic weakness and contractures SKIN: No rashes. - Labs CBC & Chem 7: 11/20/17 05:30 11/20/17 05:30 Labs: Abnormal Lab Results - Last 24 Hours (Table) 11/19/17 11/19/17 11/19/17 Range/Units 04:49 16:48 21:00 WBC (3.8-10.6) k/uL RBC (4.30-5.90) m/uL Hgb (13.0-17.5) gm/dL Hct (39.0-53.0) % BUN (9-20) mg/dL Glucose (74-99) mg/dL POC Glucose (mg/dL) 147 H 193 H (75-99) mg/dL Hemoglobin A1c 6.4 H (4.0-6.0) % 11/20/17 11/20/17 11/20/17 Range/Units 05:30 05:30 06:30 WBC 13.7 H (3.8-10.6) k/uL RBC 4.20 L (4.30-5.90) m/uL Hgb 11.8 L (13.0-17.5) gm/dL Hct 37.4 L (39.0-53.0) % BUN 54 H (9-20) mg/dL Glucose 172 H (74-99) mg/dL POC Glucose (mg/dL) 184 H (75-99) mg/dL Hemoglobin A1c (4.0-6.0) % 11/20/17 Range/Units 11:51 WBC (3.8-10.6) k/uL RBC (4.30-5.90) m/uL Hgb (13.0-17.5) gm/dL Hct (39.0-53.0) % BUN (9-20) mg/dL Glucose (74-99) mg/dL POC Glucose (mg/dL) 196 H (75-99) mg/dL Hemoglobin A1c (4.0-6.0) % Assessment and Plan Plan: -Acute blood loss anemia from upper GI bleed probably patient has antral gastritis. No more GI bleed complaining of rectal pain we'll use Anusol cream -Possible acute microinfarction possible non-ST elevation microinfarction there may be a contribution from acute GI bleed, patient is not a candidate for antiplatelet therapy or heparin at this point of time because of acute GI bleed. -Atrial fibrillation presently rate controlled on anticoagulation. -Congestive heart failure acute as well as chronic systolic dysfunction previous ejection fraction being 40% presently now 20% with significant wall motion abnormalities from possible acute myocardial infarction. Patient is not in acute exacerbation at this point of time. -History of CVAs in the past Hyperlipidemia Hearing problems -generalized deconditioning extreme report functionality
[2017-11-20] MEDS: HYDROCORTISONE SUPPOSITORY 25 MG SUPP RECTAL SCH (15:37)
[2017-11-20 16:31] LABS: Glucose,Whole Blood 175 mg/dL (75-99)
[2017-11-20 20:59] LABS: Glucose,Whole Blood 132 mg/dL (75-99)
[2017-11-21 06:19] LABS: Glucose,Whole Blood 237 mg/dL (75-99)
[2017-11-21] MEDS: INSULIN ASPART 100 UNIT/ML 1 ML 10 ML VIAL SQ SCH ×4 (06:31→21:25)
[2017-11-21] MEDS: HYDROCORTISONE SUPPOSITORY 25 MG SUPP RECTAL SCH (09:41)
[2017-11-21] MEDS: ARTIFICIAL TEARS-HYPROMELLOSE DROPS 15 ML BTL BOTH EYES SCH ×2 (09:41→21:26)
[2017-11-21] MEDS: PANTOPRAZOLE 40 MG/10 ML VIAL IVP SCH ×2 (09:41→21:26)
[2017-11-21 11:59] LABS: Glucose,Whole Blood 171 mg/dL (75-99)
--- NOTE | 2017-11-21 12:32 | P.PN ---
Subjective Progress Note Date: 11/21/17 This is a pleasant 82-year-old gentleman who follows with Dr. Cueva as an outpatient. He has a past medical history significant for prior pacemaker, chronic persistent atrial fibrillation, not on anticoagulation because the patient refused, he did suffer from multiple strokes subsequent to this. Continues to have expressive aphasia. Patient also has history of diabetes, hyperlipidemia, he was brought to the hospital on this occasion because of nausea and vomiting as well as associated coffee-ground emesis. Cardiac enzymes came back to be severely elevated with a troponin of about 50. EKG showed ventricular paced rhythm with a baseline atrial fibrillation. Patient denies any chest discomfort and is hemodynamically stable. Echocardiogram with Doppler study revealed severe LV dysfunction with an ejection fraction of 20%. At this time the patient is not on NANY inhibitor, beta susan, or Aldactone because of hypotension. Blood pressure this morning is 90/60 with a heart rate in the 60s, 100% on room air. Objective - Vital Signs Vital signs: Vital Signs Temp 97.0 F L 11/21/17 11:31 Pulse 60 11/21/17 11:33 Resp 14 11/21/17 11:33 BP 89/59 11/21/17 11:31 Pulse Ox 100 11/21/17 11:31 Intake & Output 11/20/17 11/21/17 11/21/17 18:59 06:59 18:59 Intake Total 170 Output Total 150 Balance 170 -150 Weight 83.5 kg Intake: IV 50 Oral 120 Output: Urine 150 Other: Voiding Method Diaper Diaper Diaper # Voids 1 3 # Bowel Movements 1 - Exam PHYSICAL EXAMINATION: HEENT: Head is atraumatic, normocephalic. Pupils equal, round. Neck is supple. There is no elevated jugular venous pressure. HEART EXAMINATION: Heart S1 and S2 irregularly irregular a systolic murmur is heard. CHEST EXAMINATION: Lungs reveal fine crackles to bilateral bases. ABDOMEN: Soft, nontender. Bowel sounds are heard. No organomegaly noted. EXTREMITIES: 2+ peripheral pulses with no evidence of peripheral edema and no calf tenderness noted. NEUROLOGIC patient is awake, alert and oriented -3. Positive expressive aphasia . - Labs CBC & Chem 7: 11/20/17 05:30 11/20/17 05:30 Labs: Abnormal Lab Results - Last 24 Hours (Table) 11/20/17 11/20/17 11/21/17 Range/Units 16:29 20:50 06:09 POC Glucose (mg/dL) 175 H 132 H 237 H (75-99) mg/dL 11/21/17 Range/Units 11:57 POC Glucose (mg/dL) 171 H (75-99) mg/dL Assessment and Plan Plan: Assessment and plan #1 possible GI bleed with evidence of coffee-ground emesis hemoglobin 11.8 yesterday. #2 severe nausea and vomiting, improved #3 chronic persistent atrial fibrillation, patient has refused anticoagulation in the past #4 acute non-ST elevation myocardial infarction, medical therapy advised #5 permanent pacemaker implantation #6 multiple CVAs #7 ischemic cardiomyopathy with an ejection fraction of less than 20% Plan From cardiology's perspective, we will start the patient on NANY inhibitor beta susan and Aldactone once his blood pressure tolerates. He continues to be hypotensive at this time. He is not a candidate undergo any invasive procedures. We will continue to follow. DNP note has been reviewed, I agree with a documented findings and plan of care. Patient was seen and examined.
[2017-11-21] MEDS: ONDANSETRON 4 MG/2 ML VIAL IVP PRN (12:47)
--- NOTE | 2017-11-21 15:06 | P.PN ---
Subjective 82-year-old admitted for GI bleed and also found to have non-ST elevation microinfarction. Patient went upper GI endoscopy which showed active bleeding and the gastritis. Which improved now no more blood in the stools but patient is comparing of pain in the rectal area secondary to hemorrhoids will use Anusol cream patient is not on any antiplatelet therapy or heparin because of GI bleed. 11/21/2017 No overnight events. Plan is to start him on NANY inhibitor beta susan and Aldactone once his blood pressure tolerates. Patient is not a candidate for any invasive procedures Constitutional: Denied any fatigue denied any fever. Cardio vascular: denied any chest pain, palpitations Gastrointestinal denied any nausea vomiting Pulmonary: Denied any shortness of breath cough Neurologic denied any new focal deficits Objective - Vital Signs Vital signs: Vital Signs Temp 97.0 F L 11/21/17 11:31 Pulse 60 11/21/17 11:33 Resp 14 11/21/17 11:33 BP 89/59 11/21/17 11:31 Pulse Ox 100 11/21/17 11:31 Intake & Output 11/20/17 11/21/17 11/21/17 18:59 06:59 18:59 Intake Total 170 Output Total 150 Balance 170 -150 Weight 83.5 kg Intake: IV 50 Oral 120 Output: Urine 150 Other: Voiding Method Diaper Diaper Diaper # Voids 1 3 # Bowel Movements 1 - Exam PHYSICAL EXAMINATION: GENERAL: The patient is alert and oriented x3, not in any acute distress. thin built. HEENT: Pupils are round and equally reacting to light. EOMI. No scleral icterus. No conjunctival pallor. Normocephalic, atraumatic. No pharyngeal erythema. No thyromegaly. CARDIOVASCULAR: S1 and S2 present. No murmurs, rubs, patient does have elevated JVD and probably S3 gallop PULMONARY: Chest is clear to auscultation, no wheezing or crackles. ABDOMEN: Soft, nontender, nondistended, normoactive bowel sounds. No palpable organomegaly. MUSCULOSKELETAL: No joint swelling or deformity. EXTREMITIES: No cyanosis, clubbing, or pedal edema. NEUROLOGICAL: Gross neurological examination did not reveal any new focal deficits. She does have chronic weakness and contractures SKIN: No rashes. - Labs CBC & Chem 7: 11/20/17 05:30 11/20/17 05:30 Labs: Abnormal Lab Results - Last 24 Hours (Table) 11/20/17 11/20/17 11/21/17 Range/Units 16:29 20:50 06:09 POC Glucose (mg/dL) 175 H 132 H 237 H (75-99) mg/dL 11/21/17 Range/Units 11:57 POC Glucose (mg/dL) 171 H (75-99) mg/dL Assessment and Plan Plan: -Acute blood loss anemia from upper GI bleed probably patient has antral gastritis. No more GI bleed -Possible acute myocardial possible non-ST elevation microinfarction there may be a contribution from acute GI bleed, patient is not a candidate for antiplatelet therapy or heparin or any invasive procedures at this point of time because of acute GI bleed. -Atrial fibrillation presently rate controlled on anticoagulation. -Congestive heart failure acute as well as chronic systolic dysfunction previous ejection fraction being 40% presently now 20% with significant wall motion abnormalities from possible acute myocardial infarction. Patient is not in acute exacerbation at this point of time. Plan is to optimize heart failure medications once his blood pressure tolerates -History of CVAs in the past Hyperlipidemia Hearing problems -generalized deconditioning extreme report functionality
[2017-11-21 17:12] LABS: Glucose,Whole Blood 202 mg/dL (75-99)
[2017-11-21 21:15] LABS: Glucose,Whole Blood 200 mg/dL (75-99)
[2017-11-22 06:18] LABS: Glucose,Whole Blood 143 mg/dL (75-99)
[2017-11-22] MEDS: INSULIN ASPART 100 UNIT/ML 1 ML 10 ML VIAL SQ SCH ×2 (06:48→11:51)
[2017-11-22 06:49] LABS: HCT 35.7 % (39.0-53.0); HGB 11.4 gm/dL (13.0-17.5); Hypochromasia Slight; MCH 28.3 pg (25.0-35.0); MCHC 31.8 g/dL (31.0-37.0); MCV 88.7 fL (80.0-100.0); Mean Platelet Volume 11.5; Platelet Count 118 k/uL (150-450); RBC 4.03 m/uL (4.30-5.90); RDW 14.3 % (11.5-15.5); WBC 13.2 k/uL (3.8-10.6)
[2017-11-22 06:57] LABS: Calcium 8.4 mg/dL (8.4-10.2); Potassium 4.8 mmol/L (3.5-5.1)
[2017-11-22] MEDS: PANTOPRAZOLE 40 MG/10 ML VIAL IVP SCH (08:16)
[2017-11-22] MEDS: HYDROCORTISONE SUPPOSITORY 25 MG SUPP RECTAL SCH (08:16)
[2017-11-22] MEDS: ARTIFICIAL TEARS-HYPROMELLOSE DROPS 15 ML BTL BOTH EYES SCH (08:16)
[2017-11-22 08:30] VITALS: RESP 18; TEMP 97.2
[2017-11-22] MEDS ORDERED: METOPROLOL SUCCINATE (ER) 25 MG TAB.ER.24H PO SCH (09:00)
--- NOTE | 2017-11-22 10:46 | P.PN ---
Subjective Progress Note Date: 11/22/17 This is a pleasant 82-year-old gentleman who follows with Dr. Cuvea as an outpatient. He has a past medical history significant for prior pacemaker, chronic persistent atrial fibrillation, not on anticoagulation because the patient refused, he did suffer from multiple strokes subsequent to this. Continues to have expressive aphasia. Patient also has history of diabetes, hyperlipidemia, he was brought to the hospital on this occasion because of nausea and vomiting as well as associated coffee-ground emesis. Cardiac enzymes came back to be severely elevated with a troponin of about 50. EKG showed ventricular paced rhythm with a baseline atrial fibrillation. Patient denies any chest discomfort and is hemodynamically stable. Echocardiogram with Doppler study revealed severe LV dysfunction with an ejection fraction of 20%. At this time the patient is not on NANY inhibitor, beta susan, or Aldactone because of hypotension. Blood pressure this morning is 90/60 with a heart rate in the 60s, 100% on room air. Objective - Vital Signs Vital signs: Vital Signs Temp 97.2 F L 11/22/17 08:00 Pulse 63 11/22/17 08:00 Resp 18 11/22/17 08:00 BP 91/62 11/22/17 08:00 Pulse Ox 96 11/22/17 08:00 Intake & Output 11/21/17 11/22/17 11/22/17 18:59 06:59 18:59 Weight 85 kg Other: Voiding Method Diaper Urinal Urinal Diaper Diaper # Voids 1 3 # Bowel Movements 1 - Exam PHYSICAL EXAMINATION: HEENT: Head is atraumatic, normocephalic. Pupils equal, round. Neck is supple. There is no elevated jugular venous pressure. HEART EXAMINATION: Heart S1 and S2 irregularly irregular a systolic murmur is heard. CHEST EXAMINATION: Lungs reveal fine crackles to bilateral bases. ABDOMEN: Soft, nontender. Bowel sounds are heard. No organomegaly noted. EXTREMITIES: 2+ peripheral pulses with no evidence of peripheral edema and no calf tenderness noted. NEUROLOGIC patient is awake, alert and oriented -3. Positive expressive aphasia . - Labs CBC & Chem 7: 11/22/17 06:19 11/22/17 06:19 Labs: Abnormal Lab Results - Last 24 Hours (Table) 11/21/17 11/21/17 11/21/17 Range/Units 11:57 17:04 21:14 WBC (3.8-10.6) k/uL RBC (4.30-5.90) m/uL Hgb (13.0-17.5) gm/dL Hct (39.0-53.0) % Plt Count (150-450) k/uL Sodium (137-145) mmol/L BUN (9-20) mg/dL Glucose (74-99) mg/dL POC Glucose (mg/dL) 171 H 202 H 200 H (75-99) mg/dL 11/22/17 11/22/17 11/22/17 Range/Units 06:16 06:19 06:19 WBC 13.2 H (3.8-10.6) k/uL RBC 4.03 L (4.30-5.90) m/uL Hgb 11.4 L (13.0-17.5) gm/dL Hct 35.7 L (39.0-53.0) % Plt Count 118 L (150-450) k/uL Sodium 135 L (137-145) mmol/L BUN 77 H (9-20) mg/dL Glucose 133 H (74-99) mg/dL POC Glucose (mg/dL) 143 H (75-99) mg/dL Assessment and Plan Plan: Assessment and plan #1 possible GI bleed with evidence of coffee-ground emesis #2 severe nausea and vomiting, improved #3 chronic persistent atrial fibrillation, patient has refused anticoagulation in the past #4 acute non-ST elevation myocardial infarction, medical therapy advised #5 permanent pacemaker implantation #6 multiple CVAs #7 ischemic cardiomyopathy with an ejection fraction of less than 20% Plan From cardiology's perspective, we will start the patient on 12-1/2 mg of metoprolol today. Continue to monitor blood pressure, and if tolerates initiate NANY inhibitor. DNP note has been reviewed, I agree with a documented findings and plan of care. Patient was seen and examined.
[2017-11-22 11:38] LABS: Glucose,Whole Blood 176 mg/dL (75-99)
[2017-11-22 11:48] VITALS: BMI 28.5
[2017-11-22 12:15] VITALS: BP 96/64; PULSE 66
[2017-11-22] MEDS ORDERED: ASPIRIN 81 MG PO SCH (12:30)
--- NOTE | 2017-11-22 13:13 | P.DS ---
Providers Date of admission: 11/19/17 01:09 Attending physician: Mleva Campoverde Consults: 11/19/17 01:08 Consult Physician Routine Consulting Provider: Ahmet Champion Consult Reason/Comments: gib Do you want consulting provider notified?: Yes 11/19/17 01:09 Consult Physician Urgent Consulting Provider: Rita Almazan Consult Reason/Comments: elevTrop Do you want consulting provider notified?: Yes Primary care physician: [facility] Course: 82-year-old admitted for GI bleed and also found to have non-ST elevation microinfarction. Patient went upper GI endoscopy which showed active bleeding and the gastritis. Which improved now no more blood in the stools but patient is comparing of pain in the rectal area secondary to hemorrhoids will use Anusol cream patient is not on any antiplatelet therapy or heparin because of GI bleed. 11/21/2017 No overnight events. Plan is to start him on NANY inhibitor beta susan and Aldactone once his blood pressure tolerates. Patient is not a candidate for any invasive procedures 11/22/2017 Patient is being started back on aspirin patient is on beta susan patient did not tolerate lisinopril very well lisinopril will not be continued we're unable to start any of the heart failure microinfarction medications on the patient because of his GI bleed and patient is unable to tolerate much of any medications. Patient's prognosis is extremely poor functionality is extremely poor very low Karn[place]sky sore patient is more appropriate for comfort care and hospice which need to be evaluated the residential as an outpatient. Patient will be discharged back to subacute rehabilitation. She'll having little bit of nausea PHYSICAL EXAMINATION: GENERAL: The patient is alert and oriented x3, not in any acute distress. thin built. HEENT: Pupils are round and equally reacting to light. EOMI. No scleral icterus. No conjunctival pallor. Normocephalic, atraumatic. No pharyngeal erythema. No thyromegaly. CARDIOVASCULAR: S1 and S2 present. No murmurs, rubs, patient does have elevated JVD and probably S3 gallop PULMONARY: Chest is clear to auscultation, no wheezing or crackles. ABDOMEN: Soft, nontender, nondistended, normoactive bowel sounds. No palpable organomegaly. MUSCULOSKELETAL: No joint swelling or deformity. EXTREMITIES: No cyanosis, clubbing, or pedal edema. NEUROLOGICAL: Gross neurological examination did not reveal any new focal deficits. She does have chronic weakness and contractures SKIN: No rashes. Assessment and Plan Plan: -Acute blood loss anemia from upper GI bleed probably patient has antral gastritis. No more GI bleed -Possible non-ST elevation myocardial infarction there may be a contribution from acute GI bleed, -Atrial fibrillation presently rate controlled at not on anticoagulation. -Congestive heart failure acute as well as chronic systolic dysfunction previous ejection fraction being 40% presently now 20% with significant wall motion abnormalities from possible acute myocardial infarction. Patient is not in acute exacerbation at this point of time. patient was unable to tolerate lisinopril here patient was started on beta susan -History of CVAs in the past Hyperlipidemia Hearing problems -generalized deconditioning extreme poor functionality Patient Condition at Discharge: Critical Plan - Discharge Summary Discharge Rx Participant: No New Discharge Prescriptions: New Aspirin 81 mg PO DAILY chew Hydrocortisone Suppository [Anusol-Hc] 25 mg RECTAL DAILY supp Insulin Aspart [NovoLOG (formulary)] 0 unit SQ ACHS vial Metoprolol Succinate (ER) [Toprol XL] 12.5 mg PO DAILY tab.er.24h Continue Multivitamin [Men's Multi-Vitamin] 1 tab PO DAILY Atorvastatin [Lipitor] 10 mg PO HS tab Carboxymethylcellulose Sodium [Refresh Tears] 1 drop BOTH EYES BID Aspirin 325 mg PO HS Ferrous Sulfate [Iron (65 MG Elemental)] 325 mg PO DAILY Carboxymethylcellulose Sodium [Refresh Tears] 1 drop BOTH EYES Q6H PRN PRN Reason: Dry Eye(S) Changed Omeprazole [PriLOSEC] 40 mg PO BID #0 Discontinued metFORMIN HCL 1,000 mg PO BID Discharge Medication List Multivitamin [Men's Multi-Vitamin] 1 tab PO DAILY 06/25/17 [History] Atorvastatin [Lipitor] 10 mg PO HS tab 06/28/17 [Rx] Aspirin 325 mg PO HS 11/18/17 [History] Carboxymethylcellulose Sodium [Refresh Tears] 1 drop BOTH EYES BID 11/18/17 [ History] Carboxymethylcellulose Sodium [Refresh Tears] 1 drop BOTH EYES Q6H PRN 11/18/17 [History] Ferrous Sulfate [Iron (65 MG Elemental)] 325 mg PO DAILY 11/18/17 [History] Aspirin 81 mg PO DAILY chew 11/22/17 [Rx] Hydrocortisone Suppository [Anusol-Hc] 25 mg RECTAL DAILY supp 11/22/17 [Rx] Insulin Aspart [NovoLOG (formulary)] 0 unit SQ ACHS vial 11/22/17 [Rx] Metoprolol Succinate (ER) [Toprol XL] 12.5 mg PO DAILY tab.er.24h 11/22/17 [Rx] Omeprazole [PriLOSEC] 40 mg PO BID #0 11/22/17 [Rx] Follow up Appointment(s)/Referral(s): Nadir García MD [STAFF PHYSICIAN] - 1 Week Macarena Kaur MD [Primary Care Provider] - 3 Days Discharge Disposition: HOME SELF-CARE
[2017-11-22 16:43] LABS: Glucose,Whole Blood 220 mg/dL (75-99)
== END 2017-11-22 18:17 | DRG 280 ==
LOC: SUPCPDRO 23:02 → EC 23:02 → 6SEL 11-19 01:09
PROVIDERS: ADMIT Hospitalist; ATTEND Hospitalist
PROC: 0DJ08ZZ Inspection of Upper Intestinal Tract, Via Natural or Artificial Opening Endoscopic (ICD-10-PCS; principal; 2017-11-20 08:00)
DX: I21.4 Non-ST elevation (NSTEMI) myocardial infarction (principal); I50.23 Acute on chronic systolic (congestive) heart failure; G81.91 Hemiplegia, unspecified affecting right dominant side; E11.51 Type 2 diabetes mellitus with diabetic peripheral angiopathy without gangrene; K29.61 Other gastritis with bleeding; K92.0 Hematemesis; I95.9 Hypotension, unspecified; I48.1 Persistent atrial fibrillation; I11.0 Hypertensive heart disease with heart failure; D62 Acute posthemorrhagic anemia; I48.2 Chronic atrial fibrillation; E78.5 Hyperlipidemia, unspecified; I83.90 Asymptomatic varicose veins of unspecified lower extremity; M19.90 Unspecified osteoarthritis, unspecified site; I25.10 Atherosclerotic heart disease of native coronary artery without angina pectoris; K64.9 Unspecified hemorrhoids; H91.90 Unspecified hearing loss, unspecified ear; I25.5 Ischemic cardiomyopathy; Z79.84 Long term (current) use of oral hypoglycemic drugs; Z79.899 Other long term (current) drug therapy; Z79.82 Long term (current) use of aspirin; Z88.0 Allergy status to penicillin; Z87.01 Personal history of pneumonia (recurrent); I25.2 Old myocardial infarction; Z87.440 Personal history of urinary (tract) infections; Z95.0 Presence of cardiac pacemaker; Z98.41 Cataract extraction status, right eye; Z98.42 Cataract extraction status, left eye; Z96.1 Presence of intraocular lens; Z82.3 Family history of stroke; Z82.49 Family history of ischemic heart disease and other diseases of the circulatory system; Z83.1 Family history of other infectious and parasitic diseases; Z66 Do not resuscitate; I69.320 Aphasia following cerebral infarction; Z90.89 Acquired absence of other organs
CPT/HCPCS: 36415; 43235; 71046; 80048; 80053; 80061; 82550; 82553; 83036; 83690; 83735; 84484; 85025; 85027; 85610; 85730; 86850; 86900; 86901; 93306; 94760; 96361; 96374; 96375; 99291

== ENCOUNTER 2017-11-23 07:03 | Inpatient (IN) | payer MEDICARE, BC ==
[2017-11-23] MEDS ORDERED: SODIUM CHLORIDE 0.9% 500 ML IV STA (08:05)
[2017-11-23 08:19] VITALS: PULSE 60
--- NOTE | 2017-11-23 08:25 | ED ---
General Adult HPI - General Chief complaint: Shortness of Breath Stated complaint: Diff Breathing Time Seen by Provider: 11/23/17 07:10 Source: patient, EMS, RN notes reviewed Mode of arrival: EMS Limitations: no limitations - History of Present Illness Initial comments: This is an 82-year-old male who presents emergency Department with the complaint from the detention that the patient was having some shortness of breath and his blood pressure was low. On arrival patient's blood pressure was normal as was the pulse ox. Patient himself has no new complaints. Patient denies any difficulty breathing or shortness of breath per patient denies any headache patient denies any abdominal pain patient states he is having some nausea anytime he eats so has not been eating much. Patient denies any fevers chills. states she does not have any history because the detention sentiment. No one else is with the patient so no other history is available. states the patient has had multiple strokes with complete right-sided paralysis. states the patient is a DO NOT RESUSCITATE and at this point she does not know if she even wants to do pressors but she is going to talk to her daughters. - Related Data Home Medications Medication Instructions Recorded Confirmed Multivitamin [Men's Multi-Vitamin] 1 tab PO DAILY 06/25/17 11/23/17 Carboxymethylcellulose Sodium 1 drop BOTH EYES BID 11/18/17 11/23/17 [Refresh Tears] Carboxymethylcellulose Sodium 1 drop BOTH EYES Q6H PRN 11/18/17 11/23/17 [Refresh Tears] Ferrous Sulfate [Iron (65 MG 325 mg PO DAILY 11/18/17 11/23/17 Elemental)] Insulin Aspart [NovoLOG See Protocol SQ ACHS 11/23/17 11/23/17 (formulary)] Previous Rx's Medication Instructions Recorded Atorvastatin [Lipitor] 10 mg PO HS tab 06/28/17 Aspirin 81 mg PO DAILY chew 11/22/17 Hydrocortisone Suppository 25 mg RECTAL DAILY supp 11/22/17 [Anusol-Hc] Metoprolol Succinate (ER) [Toprol 12.5 mg PO DAILY tab.er.24h 11/22/17 XL] Omeprazole [PriLOSEC] 40 mg PO BID #0 11/22/17 Allergies Allergy/AdvReac Type Severity Reaction Status Date / Time Penicillins Allergy Unknown Verified 11/23/17 08:31 Review of Systems ROS Statement: Those systems with pertinent positive or pertinent negative responses have been documented in the HPI. ROS Other: All systems not noted in ROS Statement are negative. Past Medical History Past Medical History: Heart Failure, CVA/TIA, Diabetes Mellitus, Hyperlipidemia , Hypertension, Myocardial Infarction (CA), Osteoarthritis (OA), Pneumonia, Vascular Disorder Additional Past Medical History / Comment(s): Pt recently admitted to [facility] on with CVA with R sided paralysis and garbled speech. Other hx: 2 previous CVAs-speech affected, NIDDM type II, bradycardia, caratid stenosis, chronic normocytic anemia, back pain, possible bilateral carpal tunnel syndrome , UTI with sepsis, vaicose veins, PVD, R femur fx with surgery, L ankle fx with surgery, R leg spasms. Last Myocardial Infarction Date:: unkn History of Any Multi-Drug Resistant Organisms: None Reported Past Surgical History: Pacemaker, Tonsillectomy Additional Past Surgical History / Comment(s): R leg ORIF with hardware, L ankle ORIF with hardware, bilateral cataract removal with lens implants, colonoscopy/EGD, L caratid endartectomy. Past Anesthesia/Blood Transfusion Reactions: No Reported Reaction Type of Cardiac Device: Permanent Pacemaker Device Placement Date:: 2010 Past Psychological History: No Psychological Hx Reported Smoking Status: Unknown if ever smoked Past Alcohol Use History: None Reported Past Drug Use History: None Reported - Past Family History Brother(s) Family Medical History: CVA/TIA Mother Family Medical History: Coronary Artery Disease (CAD), CVA/TIA Father Family Medical History: CVA/TIA Additional Family Medical History / Comment(s): Tuberculosis. General Exam - General Exam Comments Initial Comments: GENERAL: Patient is well-developed and well-nourished. Patient is nontoxic and well- hydrated and is in no acute distress. ENT: Neck is soft and supple. No significant lymphadenopathy is noted. Oropharynx is clear. Moist mucous membranes. Neck has full range of motion without eliciting any pain. EYES: The sclera were anicteric and conjunctiva were pink and moist. Extraocular movements were intact and pupils were equal round and reactive to light. Eyelids were unremarkable. PULMONARY: Unlabored respirations. Good breath sounds bilaterally. No audible rales rhonchi or wheezing was noted. CARDIOVASCULAR: There is a regular rate and rhythm without any murmurs gallops or rubs. ABDOMEN: Soft and nontender with normal bowel sounds. SKIN: Skin is clear with no lesions or rashes and otherwise unremarkable. NEUROLOGIC: Patient is alert and oriente 2. Cranial nerves II through XII are grossly intact. Motor and sensory are also intact. Normal speech, volume and content. Symmetrical smile. MUSCULOSKELETAL: She has complete right-sided paralysis LYMPHATICS: No significant lymphadenopathy is noted Limitations: no limitations Course Vital Signs 11/23/17 11/23/17 11/23/17 07:10 07:20 08:16 Temperature 97.4 F L Pulse Rate 69 60 Respiratory 18 18 16 Rate Blood Pressure 118/55 108/55 O2 Sat by Pulse 90 L 98 Oximetry Medical Decision Making - Medical Decision Making EKG shows a ventricular paced rhythm at 75 bpm QRS is 186 QT interval 472 QTC is 527. Patient's last visit he was diagnosed with having acute CA. Patient has labs that are indicating he has some shock liver as well as renal insufficiency. Patient also appears to have aspiration pneumonia. I spoke with the family and they wanted no intervention no pressors no CPR and no antibiotics they just wanted the patient comfortable because that is what the patient wants. I spoke with Dr. Amita Levi agreed to admit the patient admitted the patient. - Lab Data Result diagrams: 11/23/17 07:20 11/23/17 07:20 Lab Results 11/23/17 11/23/17 11/23/17 Range/Units 07:20 07:20 07:20 WBC 13.8 H (3.8-10.6) k/uL RBC 4.15 L (4.30-5.90) m/uL Hgb 11.6 L (13.0-17.5) gm/dL Hct 35.8 L (39.0-53.0) % MCV 86.2 (80.0-100.0) fL MCH 28.0 (25.0-35.0) pg MCHC 32.5 (31.0-37.0) g/dL RDW 14.7 (11.5-15.5) % Plt Count 85 L (150-450) k/uL Neutrophils % 74 % Lymphocytes % 15 % Monocytes % 10 % Eosinophils % 0 % Basophils % 0 % Neutrophils # 10.2 H (1.3-7.7) k/uL Lymphocytes # 2.0 (1.0-4.8) k/uL Monocytes # 1.4 H (0-1.0) k/uL Eosinophils # 0.0 (0-0.7) k/uL Basophils # 0.0 (0-0.2) k/uL Large Platelets Present Poikilocytosis (manual Present PT (9.0-12.0) sec INR (<1.2) APTT (22.0-30.0) sec Sodium 131 L (137-145) mmol/L Potassium 5.3 H (3.5-5.1) mmol/L Chloride 97 L (98-107) mmol/L Carbon Dioxide 20 L (22-30) mmol/L Anion Gap 14 mmol/L BUN 91 H* (9-20) mg/dL Creatinine 1.63 H (0.66-1.25) mg/dL Est GFR (CKD-EPI)AfAm 45 (>60 ml/min/1.73 sqM) Est GFR (CKD-EPI)NonAf 39 (>60 ml/min/1.73 sqM) Glucose 147 H (74-99) mg/dL Calcium 8.0 L (8.4-10.2) mg/dL Magnesium 1.9 (1.6-2.3) mg/dL Total Bilirubin 1.0 (0.2-1.3) mg/dL AST 1161 H (17-59) U/L ALT 1410 H (21-72) U/L Alkaline Phosphatase 210 H (38-126) U/L Total Creatine Kinase 112 (55-170) U/L CK-MB (CK-2) 6.5 H* (0.0-2.4) ng/mL CK-MB (CK-2) Rel Index 5.8 Troponin I 22.500 H* (0.000-0.034) ng/mL Total Protein 6.3 (6.3-8.2) g/dL Albumin 3.0 L (3.5-5.0) g/dL 11/23/17 Range/Units 07:20 WBC (3.8-10.6) k/uL RBC (4.30-5.90) m/uL Hgb (13.0-17.5) gm/dL Hct (39.0-53.0) % MCV (80.0-100.0) fL MCH (25.0-35.0) pg MCHC (31.0-37.0) g/dL RDW (11.5-15.5) % Plt Count (150-450) k/uL Neutrophils % % Lymphocytes % % Monocytes % % Eosinophils % % Basophils % % Neutrophils # (1.3-7.7) k/uL Lymphocytes # (1.0-4.8) k/uL Monocytes # (0-1.0) k/uL Eosinophils # (0-0.7) k/uL Basophils # (0-0.2) k/uL Large Platelets Poikilocytosis (manual PT 17.2 H (9.0-12.0) sec INR 1.9 H (<1.2) APTT 27.1 (22.0-30.0) sec Sodium (137-145) mmol/L Potassium (3.5-5.1) mmol/L Chloride (98-107) mmol/L Carbon Dioxide (22-30) mmol/L Anion Gap mmol/L BUN (9-20) mg/dL Creatinine (0.66-1.25) mg/dL Est GFR (CKD-EPI)AfAm (>60 ml/min/1.73 sqM) Est GFR (CKD-EPI)NonAf (>60 ml/min/1.73 sqM) Glucose (74-99) mg/dL Calcium (8.4-10.2) mg/dL Magnesium (1.6-2.3) mg/dL Total Bilirubin (0.2-1.3) mg/dL AST (17-59) U/L ALT (21-72) U/L Alkaline Phosphatase (38-126) U/L Total Creatine Kinase (55-170) U/L CK-MB (CK-2) (0.0-2.4) ng/mL CK-MB (CK-2) Rel Index Troponin I (0.000-0.034) ng/mL Total Protein (6.3-8.2) g/dL Albumin (3.5-5.0) g/dL Disposition Clinical Impression: Elevated liver enzymes, Renal insufficiency, Hypotension, Hypoxia, Aspiration pneumonia Disposition: ADMITTED IP TO THIS HOSP Referrals: Macarena Kaur MD [Primary Care Provider] - 1-2 days Time of Disposition: 09:19
[2017-11-23 08:36] LABS: INR 1.9 (<1.2); Magnesium 1.9 mg/dL (1.6-2.3); Partial Thromboplastin Time 27.1 sec (22.0-30.0); Potassium 5.3 mmol/L (3.5-5.1); Prothrombin Time 17.2 sec (9.0-12.0); Total Protein 6.3 g/dL (6.3-8.2)
[2017-11-23 08:39] LABS: Basophils % (A) 0 %; Eosinophils % (A) 0 %; HCT 35.8 % (39.0-53.0); HGB 11.6 gm/dL (13.0-17.5); Lymphocytes % (A) 15 %; MCHC 32.5 g/dL (31.0-37.0); MCV 86.2 fL (80.0-100.0); Mean Platelet Volume 12.7; Monocytes # (A) 1.4 k/uL (0-1.0); Monocytes % (A) 10 %; Neutrophils # (A) 10.2 k/uL (1.3-7.7); Neutrophils % (A) 74 %; RBC 4.15 m/uL (4.30-5.90); RDW 14.7 % (11.5-15.5); WBC 13.8 k/uL (3.8-10.6)
[2017-11-23 08:59] LABS: Platelet Count 85 k/uL (150-450)
--- NOTE | 2017-11-23 08:59 | XR ---
EXAMINATION TYPE: XR chest 2V DATE OF EXAM: 11/23/2017 COMPARISON: Prior chest x-ray 11/19/2017 HISTORY: Difficulty breathing TECHNIQUE: Frontal and lateral views of the chest are obtained. FINDINGS: There is abnormal increased density in the right lower lobe. No evident pneumothorax. Hear t appears enlarged although patient is rotated. Pacemaker is stable with leads in the right atrium an d ventricle. Possible increased density in the left lower lobe, there is obscured medial aspect of th e left hemidiaphragm. IMPRESSION: Findings could be indicative of pneumonia, consider aspiration with possible associated effusion. Possible cardiomegaly, follow-up recommended.
[2017-11-23 09:01] LABS: Creatine Kinase MB 6.5 ng/mL (0.0-2.4); Large Platelets Present; Poikilocytosis (M) Present; Troponin I 22.5 ng/mL (0.000-0.034)
[2017-11-23] MEDS ORDERED: LEVOFLOXACIN 750MG-D5W PMX 750 MG in DEXTROSE/WATER 1 150ML.BAG IVPB STA (09:05)
[2017-11-23] MEDS ORDERED: SODIUM CHLORIDE 0.9% 1,000 ML IV ONE (09:20)
[2017-11-23 10:25] VITALS: BP 88/63; RESP 18; TEMP 98.3
[2017-11-23] MEDS ORDERED: ZOLPIDEM 5 MG TAB PO PRN (10:37)
[2017-11-23] MEDS ORDERED: HALOPERIDOL LACTATE 5 MG/ML 1 ML VIAL IM PRN (10:37)
[2017-11-23] MEDS ORDERED: LORazepam 2 MG/ML INJ IV PRN (10:37)
[2017-11-23] MEDS ORDERED: POLYETHYLENE GLYCOL 3350 17 GM POWD.PACK PO PRN (10:37)
[2017-11-23] MEDS ORDERED: ONDANSETRON 4 MG/2 ML VIAL IVP PRN (10:37)
[2017-11-23] MEDS ORDERED: ACETAMINOPHEN TAB 325 MG TAB PO PRN (10:37)
[2017-11-23] MEDS ORDERED: HYDROcodone/APAP 5-325MG 1 EACH TAB PO PRN (10:37)
--- NOTE | 2017-11-23 10:49 | P.HPIM ---
History of Present Illness 82-year-old male gentleman known to me was discharged from my service yesterday came back because of September he [facility]. Patient has extremely poor functionality and and very low Karnofsky score. Patient during his last hospitalization had a myocardial infraction we' re unable to treat him at that time because of his GI bleed the patient and we' re unable to use any antiplatelet medications although patient was discharged on aspirin patient was having heart failure as well although he was not started on any heart failure medications as he was unable to tolerate any medications patient had history of atrial fibrillation had multiple strokes in the past which led to his extreme poor functionality bedbound state. Patient this time and he came back is found to have elevated troponins probably had another myocardial infarction and appear to have shock liver with highly elevated liver enzymes. ER had excessive discussion with the family and was made comfort care. I discussed with the family extensively today. Patient's the 2 daughters and are at the bedside agreeable with the decision and patient will be admitted as hospice or comfort care and hospice services will be consulted patient was started on comfort medications only rest of the medications will be discontinued at this point of time patient is not in respiratory distress but is comparing of back pain. Patient pretty much looks the same as yesterday when I discharged the patient. 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 Other hx: 2 previous CVAs-speech affected, NIDDM type II, bradycardia, caratid stenosis, chronic normocytic anemia, back pain, possible bilateral carpal tunnel syndrome , UTI with sepsis, vaicose veins, PVD, R femur fx with surgery, L ankle fx with surgery, R leg spasms. Last Myocardial Infarction Date:: unkn History of Any Multi-Drug Resistant Organisms: None Reported Past Surgical History: Pacemaker, Tonsillectomy Additional Past Surgical History / Comment(s): R leg ORIF with hardware, L ankle ORIF with hardware, bilateral cataract removal with lens implants, colonoscopy/EGD, L caratid endartectomy. Past Anesthesia/Blood Transfusion Reactions: No Reported Reaction Type of Cardiac Device: Permanent Pacemaker Device Placement Date:: 2010 Past Psychological History: No Psychological Hx Reported Smoking Status: Unknown if ever smoked Past Alcohol Use History: None Reported Past Drug Use History: None Reported - Past Family History Brother(s) Family Medical History: CVA/TIA Mother Family Medical History: Coronary Artery Disease (CAD), CVA/TIA Father Family Medical History: CVA/TIA Additional Family Medical History / Comment(s): Tuberculosis. Medications and Allergies Home Medications Medication Instructions Recorded Confirmed Type Multivitamin [Men's Multi-Vitamin] 1 tab PO DAILY 06/25/17 11/23/17 History Atorvastatin [Lipitor] 10 mg PO HS tab 06/28/17 11/23/17 Rx Carboxymethylcellulose Sodium 1 drop BOTH EYES BID 11/18/17 11/23/17 History [Refresh Tears] Carboxymethylcellulose Sodium 1 drop BOTH EYES Q6H PRN 11/18/17 11/23/17 History [Refresh Tears] Ferrous Sulfate [Iron (65 MG 325 mg PO DAILY 11/18/17 11/23/17 History Elemental)] Aspirin 81 mg PO DAILY chew 11/22/17 11/23/17 Rx Hydrocortisone Suppository 25 mg RECTAL DAILY supp 11/22/17 11/23/17 Rx [Anusol-Hc] Metoprolol Succinate (ER) [Toprol 12.5 mg PO DAILY tab.er.24h 11/22/17 Rx XL] Omeprazole [PriLOSEC] 40 mg PO BID #0 11/22/17 11/23/17 Rx Insulin Aspart [NovoLOG See Protocol SQ ACHS 11/23/17 11/23/17 History (formulary)] Allergies Allergy/AdvReac Type Severity Reaction Status Date / Time Penicillins Allergy Unknown Verified 11/23/17 08:31 Physical Exam Vitals: Vital Signs Temp Pulse Resp BP Pulse Ox 11/23/17 10:24 98.3 F 60 18 88/63 93 L 11/23/17 08:16 60 16 108/55 98 11/23/17 07:20 18 11/23/17 07:10 97.4 F L 69 18 118/55 90 L Intake and Output 0411/23/17 11/23/17 22:59 06:59 14:59 Other: Weight 77.111 kg PHYSICAL EXAMINATION: GENERAL: The patient is alert and oriented x2, not in any acute distress. Well developed, well nourished. HEENT: Pupils are round and equally reacting to light. EOMI. No scleral icterus. No conjunctival pallor. Normocephalic, atraumatic. No pharyngeal erythema. No thyromegaly. CARDIOVASCULAR: S1 and S2 present. No murmurs, rubs, or gallops. PULMONARY: Chest is clear to auscultation, no wheezing or crackles. ABDOMEN: Soft, nontender, nondistended, normoactive bowel sounds. No palpable organomegaly. MUSCULOSKELETAL: No joint swelling or deformity. EXTREMITIES: No cyanosis, clubbing, or pedal edema. NEUROLOGICAL: Gross neurological examination did not reveal any new focal deficits. She does have some chronic weakness and contractors SKIN: No rashes. Results CBC & Chem 7: 11/23/17 07:20 11/23/17 07:20 Labs: Abnormal Lab Results - Last 24 Hours (Table) 11/23/17 11/23/17 11/23/17 Range/Units 07:20 07:20 07:20 WBC 13.8 H (3.8-10.6) k/uL RBC 4.15 L (4.30-5.90) m/uL Hgb 11.6 L (13.0-17.5) gm/dL Hct 35.8 L (39.0-53.0) % Plt Count 85 L (150-450) k/uL Neutrophils # 10.2 H (1.3-7.7) k/uL Monocytes # 1.4 H (0-1.0) k/uL PT (9.0-12.0) sec INR (<1.2) Sodium 131 L (137-145) mmol/L Potassium 5.3 H (3.5-5.1) mmol/L Chloride 97 L (98-107) mmol/L Carbon Dioxide 20 L (22-30) mmol/L BUN 91 H* (9-20) mg/dL Creatinine 1.63 H (0.66-1.25) mg/dL Glucose 147 H (74-99) mg/dL Plasma Lactic Acid Humberto (0.7-2.0) mmol/L Calcium 8.0 L (8.4-10.2) mg/dL AST 1161 H (17-59) U/L ALT 1410 H (21-72) U/L Alkaline Phosphatase 210 H (38-126) U/L CK-MB (CK-2) 6.5 H* (0.0-2.4) ng/mL Troponin I 22.500 H* (0.000-0.034) ng/mL Albumin 3.0 L (3.5-5.0) g/dL 11/23/17 11/23/17 Range/Units 07:20 07:20 WBC (3.8-10.6) k/uL RBC (4.30-5.90) m/uL Hgb (13.0-17.5) gm/dL Hct (39.0-53.0) % Plt Count (150-450) k/uL Neutrophils # (1.3-7.7) k/uL Monocytes # (0-1.0) k/uL PT 17.2 H (9.0-12.0) sec INR 1.9 H (<1.2) Sodium (137-145) mmol/L Potassium (3.5-5.1) mmol/L Chloride (98-107) mmol/L Carbon Dioxide (22-30) mmol/L BUN (9-20) mg/dL Creatinine (0.66-1.25) mg/dL Glucose (74-99) mg/dL Plasma Lactic Acid Humberto 2.9 H* (0.7-2.0) mmol/L Calcium (8.4-10.2) mg/dL AST (17-59) U/L ALT (21-72) U/L Alkaline Phosphatase (38-126) U/L CK-MB (CK-2) (0.0-2.4) ng/mL Troponin I (0.000-0.034) ng/mL Albumin (3.5-5.0) g/dL Assessment and Plan Plan: -Possible acute myocardial infarction non-ST elevation microinfarction -Shock liver -Recent GI bleed -History of multiple CVAs in the past secondary to atrial fibrillation not on any anticoagulation -Extreme poor functionality Plan is comfort care patient was started on comfort measures all other medications will be discontinued. Hospice will be consulted
[2017-11-23] MEDS: MORPHINE SULFATE 4MG/4ML SYRG IV PRN ×3 (12:11→14:08)
[2017-11-23] MEDS ORDERED: SODIUM CHLORIDE 0.9% 1,000 ML IV SCH (12:15)
[2017-11-23 13:39] VITALS: BMI 24.3
--- NOTE | 2017-11-23 17:16 | P.DS ---
Providers Date of admission: 11/23/17 09:21 Attending physician: Radha Levi Primary care physician: Macarena Kaur [facility] Course: Patient today please refer to nursing documentation for time and date of . Luminary cause of possible acute myocardial infarction leading to multiorgan dysfunction and failure. Plan - Discharge Summary Discharge Rx Participant: No New Discharge Prescriptions: No Action Multivitamin [Men's Multi-Vitamin] 1 tab PO DAILY Atorvastatin [Lipitor] 10 mg PO HS tab Carboxymethylcellulose Sodium [Refresh Tears] 1 drop BOTH EYES BID Ferrous Sulfate [Iron (65 MG Elemental)] 325 mg PO DAILY Carboxymethylcellulose Sodium [Refresh Tears] 1 drop BOTH EYES Q6H PRN PRN Reason: Dry Eye(S) Aspirin 81 mg PO DAILY chew Hydrocortisone Suppository [Anusol-Hc] 25 mg RECTAL DAILY supp Metoprolol Succinate (ER) [Toprol XL] 12.5 mg PO DAILY tab.er.24h Omeprazole [PriLOSEC] 40 mg PO BID #0 Insulin Aspart [NovoLOG (formulary)] See Protocol SQ ACHS Discharge Medication List Multivitamin [Men's Multi-Vitamin] 1 tab PO DAILY 06/25/17 [History] Atorvastatin [Lipitor] 10 mg PO HS tab 06/28/17 [Rx] Carboxymethylcellulose Sodium [Refresh Tears] 1 drop BOTH EYES BID 11/18/17 [ History] Carboxymethylcellulose Sodium [Refresh Tears] 1 drop BOTH EYES Q6H PRN 11/18/17 [History] Ferrous Sulfate [Iron (65 MG Elemental)] 325 mg PO DAILY 11/18/17 [History] Aspirin 81 mg PO DAILY chew 11/22/17 [Rx] Hydrocortisone Suppository [Anusol-Hc] 25 mg RECTAL DAILY supp 11/22/17 [Rx] Metoprolol Succinate (ER) [Toprol XL] 12.5 mg PO DAILY tab.er.24h 11/22/17 [Rx] Omeprazole [PriLOSEC] 40 mg PO BID #0 11/22/17 [Rx] Insulin Aspart [NovoLOG (formulary)] See Protocol SQ [facility] 11/23/17 [History] Follow up Appointment(s)/Referral(s): Macarena Kaur MD [Primary Care Provider] - 1-2 days Discharge Disposition: - Preliminary Cause of Preliminary Cause of : Possible acute myocardial infarction
[2017-11-24] MEDS ORDERED: LEVOFLOXACIN 750MG-D5W PMX 750 MG in DEXTROSE/WATER 1 150ML.BAG IVPB SCH (10:00)
--- NOTE | 2017-12-15 08:25 | CDI ---
Last Revision, July 2017 Documentation Clarification Form Date: 12/15/17 From: Monika Corey Maureen Pace, Inside Sales Agent between 8:30 am & 5 pm [place] Admit Date: 11/23/2017 9:21:00 AM Patient Name: Jethro Marquez Visit Number: [id number] Discharge Date: 11/23/17 ATTENTION: The Clinical Documentation Specialists (CDI) and [facility] Coding Staff appreciate your assistance in clarifying documentation. Please respond to the clarification below the line at the bottom and electronically sign. The CDI & [facility] Coding staff will review the response and follow-up if needed. Please note: Queries are made part of the Legal Health Record. If you have any questions, please contact the author of this message via ITS. Dr. Radha Levi Patient readmitted due to SOB with acute non-ST GA. 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 ED and H&P state patient has hx of heart failure but unable to treat [place] [address]. CXR: Findings could be indicative of pneumonia, consider aspiration with possible associated effusion. Possible cardiomegaly, follow-up recommended. In your professional opinion, can you please clarify the acuity and type of CHF if known? Type Systolic Heart Failure: Diastolic Heart Failure: Systolic & Diastolic Heart Failure: Acuity Acute Chronic Acute on Chronic Heart Failure Unable to Determine Other, please specify Please continue to document in your progress notes and discharge summary in order to capture severity of illness and risk of mortality. Include clinical findings that support your diagnosis. Unable to Determine MTDD
--- NOTE | 2017-12-15 08:33 | CDI ---
Last Revision, July 2017 Documentation Clarification Form Date: 12/15/2017 8:28:00 AM From: Monika Nicole Maureen Pace, Adviser Sales between 8:30 am & 5 pm [place] Admit Date: 11/23/2017 9:21:00 AM Patient Name: Jethro Marquez Visit Number: [id number] Discharge Date: 11/23/17 ATTENTION: The Clinical Documentation Specialists (CDI) and [facility] Coding Staff appreciate your assistance in clarifying documentation. Please respond to the clarification below the line at the bottom and electronically sign. The CDI & [facility] Coding staff will review the response and follow-up if needed. Please note: Queries are made part of the Legal Health Record. If you have any questions, please contact the author of this message via ITS. Dr. Radha Levi Atrial fibrillation is documented in the ED record and H&P. 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 Due to his recent GI bleed and history of multiple CVAs, unable to use any anticoagulation. EKG: ventricular paced rhythm In your professional opinion, can you please clarify the type of atrial fibrillation, if known? Chronic/Permanent Paroxysmal Persistent Other, please specify Unable to determine Please continue to document in your progress notes and discharge summary in order to capture severity of illness and risk of mortality. Include clinical findings that support your diagnosis. Unable to determine MTDD
== END 2017-11-23 14:25 | disposition expired ==
LOC: EC 07:03 → 5ONC 09:21
PROVIDERS: ADMIT Internal Medicine; ATTEND Internal Medicine
DX: I22.2 Subsequent non-ST elevation (NSTEMI) myocardial infarction (principal); K72.00 Acute and subacute hepatic failure without coma; J69.0 Pneumonitis due to inhalation of food and vomit; I69.351 Hemiplegia and hemiparesis following cerebral infarction affecting right dominant side; I95.9 Hypotension, unspecified; E11.51 Type 2 diabetes mellitus with diabetic peripheral angiopathy without gangrene; I50.9 Heart failure, unspecified; I11.0 Hypertensive heart disease with heart failure; I48.91 Unspecified atrial fibrillation; D64.9 Anemia, unspecified; I69.328 Other speech and language deficits following cerebral infarction; I21.9 Acute myocardial infarction, unspecified; Z51.5 Encounter for palliative care; Z66 Do not resuscitate; I25.2 Old myocardial infarction; R40.2142 Coma scale, eyes open, spontaneous, at arrival to emergency department; R40.2362 Coma scale, best motor response, obeys commands, at arrival to emergency department; R40.2242 Coma scale, best verbal response, confused conversation, at arrival to emergency department; E78.5 Hyperlipidemia, unspecified; R09.02 Hypoxemia; M54.9 Dorsalgia, unspecified; M19.91 Primary osteoarthritis, unspecified site; Z79.82 Long term (current) use of aspirin; Z79.4 Long term (current) use of insulin; Z79.899 Other long term (current) drug therapy; Z74.01 Bed confinement status; Z87.01 Personal history of pneumonia (recurrent); Z87.440 Personal history of urinary (tract) infections; Z87.81 Personal history of (healed) traumatic fracture; Z95.0 Presence of cardiac pacemaker; Z86.79 Personal history of other diseases of the circulatory system; Z98.41 Cataract extraction status, right eye; Z98.42 Cataract extraction status, left eye; Z96.1 Presence of intraocular lens; Z88.0 Allergy status to penicillin; Z82.49 Family history of ischemic heart disease and other diseases of the circulatory system; Z82.3 Family history of stroke; Z83.1 Family history of other infectious and parasitic diseases
CPT/HCPCS: 36415; 71046; 80053; 82550; 82553; 83605; 83735; 83880; 84484; 85025; 85610; 85730; 87040; 93005; 96360; 96361; 99285